=== PATIENT | male | born 1960 | race Caucasian/White ===

== ENCOUNTER 2017-01-13 02:09 | Emergency (ER) | payer OTHER ==
[~2017-01-13] VITALS: Ht 175.3 cm; Wt 90.4 kg
[~2017-01-13 02:09] MED LIST: ACID1TAB14 PO; ASPI-664 PO; CLOP75TA28 PO; COU5 PO; DAPT500V IV; HYDR-3498 PO; LANC1EAC MC; LANT3I SC; LEVO500T10 PO; METO-448 PO; NIFE30TA2 PO; NIFE60TA11 PO; NOVO3I SC; [UNRECOGNIZED DRUG - CODE] MC
[2017-01-13 03:07] VITALS: Ht 175.3 cm; Wt 90.4 kg
[2017-01-13] MEDS ORDERED: SOD CHLORIDE 0.9% 1,000 ML IV STA (03:43)
--- NOTE | 2017-01-13 03:52 | ERD ---
ER Documentation Chief Complaint Date/Time DATE: 01/13/17 TIME: 03:49 Chief Complaint Chest pain and high blood pressure x 1 week. Worse last night HPI Patient is a 56-year-old male who states that his primary care doctor recently changed his blood pressure medications. He states he feels like when he takes his blood pressure medications his blood pressure actually goes up and this causes him to have pain. He has not really sure however how it may be affecting his blood pressure as he does not really check his blood pressure. Patient states that he is taking his simvastatin for his cholesterol and he notes after taking that that he does have these aches and pains everywhere. He also notes that his abdomen has been sore ever since he started taking that as well. He did not discuss his symptoms with his primary care physician. He has not reported any jaundice nausea or vomiting or any other symptoms. In the remainder of the systems are negative. ROS All systems reviewed and are negative except as per history of present illness. Medications Home Meds Active Scripts Lancets (Comfort Lancets) 1 Each Each, 1 EACH MC, #100 Prov:KRIS FISHER MD 09/06/16 Blood-Glucose Meter, Drum-Type (Accu-Chek) 1 Each Kit, 1 EACH MC, #1 Prov:KRIS FISHER MD 09/06/16 Daptomycin (Daptomycin) 500 Mg Vial, 500 MG IV DAILY for 42 Days, VIAL Prov:CHANO RAYMUNDO . 09/06/16 Levofloxacin* (Levofloxacin*) 500 Mg Tablet, 500 MG PO DAILY for 42 Days, TAB Prov:CHANO RAYMUNDO. 09/06/16 Warfarin Sod (Coumadin) 5 Mg Tab, 3 MG PO DAILY@17 for 30 Days, TAB 2 Refills Prov:CHANO RAYMUNDO. 09/06/16 Nifedipine (Nifedical Xl) 60 Mg Tab.er.24, 60 MG PO QHS for 30 Days, TAB 2 Refills Prov:CHANO RAYMUNDO. 09/06/16 Nifedipine (Procardia Xl) 30 Mg Tab.er.24, 30 MG PO QAM for 30 Days, TAB 2 Refills Prov:CHANO RAYMUNDO. 09/06/16 Metoprolol Tartrate* (Lopressor*) 25 Mg Tab, 25 MG PO BID for 30 Days, TAB 2 Refills Prov:CHANO RAYMUNDO. 09/06/16 Lactobacillus Acidoph/Bulgaricus* (Floranex*) 1 Each Tablet, 1 TAB PO TID for 30 Days, TAB 1 Refill Prov:CHANO RAYMUNDO. 09/06/16 Insulin Glargine* (Lantus*) 100 Unit/Ml Soln, 10 UNIT SC QHS for 30 Days, 2 Refills Prov:CHANO RAYMUNDO. 09/06/16 Hydrocodone Bit-Acetaminophen (Hydrocodone Bit-APAP) 5-325MG Tablet, 1 TAB PO Q6H Y for MODERATE PAIN LEVEL 4-6, #30 TAB Prov:CHANO RAYMUNDO. 09/06/16 Insulin Aspart* (Novolog Insulin Pen*) 100 Unit/Ml Soln, 8 UNIT SC WITH MEALS for 30 Days, 2 Refills Prov:CHANO RAYMUNDO. 09/06/16 Clopidogrel Bisulfate (Clopidogrel) 75 Mg Tablet, 75 MG PO DAILY for 30 Days, TAB 2 Refills Prov:CHANO RAYMUNDO. 09/06/16 Aspirin* (Aspirin* EC) 81 Mg Tablet.dr, 81 MG PO DAILY for 30 Days, 2 Refills Prov:CHANO RAYMUNDO. 09/06/16 Allergies Allergies: Coded Allergies: No Known Allergy (Unverified , 08/31/16) PMhx/Soc History of Surgery: Yes (left lower extremity arterial bypass surgery) Anesthesia Reaction: No Hx Neurological Disorder: No Hx Respiratory Disorders: No Hx Cardiac Disorders: Yes Hx Psychiatric Problems: No Hx Miscellaneous Medical Probl: Yes (diabetes, osteomyelitis) Hx Alcohol Use: No Hx Substance Use: No Hx Tobacco Use: No Smoking Status: Never smoker FmHx Family History: coronary disease, diabetes Physical Exam Vitals Vital Signs Date Time Temp Pulse Resp B/P Pulse Ox O2 Delivery O2 Flow Rate FiO2 01/13/17 03:55 98.4 76 15 165/82 100 Room Air 01/13/17 03:12 83 13 160/81 99 Room Air 01/13/17 03:07 96.8 96 18 220/99 100 Physical Exam Const: [] Well-developed well-nourished male sitting on the bed no acute distress Head: Atraumatic normocephalic Eyes: Normal Conjunctiva ENT: Normal External Ears, Nose and Mouth. Neck: Full range of motion..~ No meningismus. Resp: Clear to auscultation bilaterally Cardio: Regular rate and rhythm, no murmurs Abd: Soft, non tender, non distended. Normal bowel sounds Skin: No petechiae or rashes Back: No midline or flank tenderness Ext: No cyanosis, or edema Neur: Awake and alert oriented 3, GCS of 15, seems anxious Psych: Normal Mood and Affect Result Diagram: 01/13/1733901/13/17339 Results 24 hrs Laboratory Tests Test 01/13/17 03:40 Activated Partial Thromboplast Time 28.7Sec Alanine Aminotransferase (ALT/SGPT) 35IU/L Albumin 4.0g/dl Albumin/Globulin Ratio 1.02 Alkaline Phosphatase 101IU/L Anion Gap 18 Aspartate Amino Transf (AST/SGOT) 32IU/L Basophils # 0.010^3/ul Basophils % 0.4% Blood Urea Nitrogen 26mg/dl Calcium Level 9.0mg/dl Carbon Dioxide Level 24mmol/L Chloride Level 105mmol/L Creatine Kinase 310IU/L Creatine Kinase Index 1.1 Creatinine 0.95mg/dl Creatinine Kinase MB (Mass) 3.27ng/ml Direct Bilirubin 0.00mg/dl Eosinophils # 0.210^3/ul Eosinophils % 2.5% Globulin 3.90g/dl Glucose Level 86mg/dl Hematocrit 34.5% Hemoglobin 11.8g/dl INR International Normalized Ratio 1.29 Indirect Bilirubin 0.2mg/dl Lymphocytes # 2.710^3/ul Lymphocytes % 33.8% Mean Corpuscular Hemoglobin 29.9pg Mean Corpuscular Hemoglobin Concent 34.2g/dl Mean Corpuscular Volume 87.3fl Mean Platelet Volume 9.8fl Monocytes # 0.910^3/ul Monocytes % 10.8% Neutrophils # 4.210^3/ul Neutrophils % 52.3% Nucleated Red Blood Cells # 0.010^3/ul Nucleated Red Blood Cells % 0.0/100WBC Platelet Count 12762^3/UL Potassium Level 5.2mmol/L Prothrombin Time 16.2Sec Prothrombin Time Ratio 1.3 Red Blood Count 3.9510^6/ul Red Cell Distribution Width 12.6% Sodium Level 142mmol/L Total Bilirubin 0.2mg/dl Total Protein 7.9g/dl Troponin I < 0.012ng/ml White Blood Count 8.110^3/ul Current Medications Medications (Trade) Dose Ordered Sig/Stacie Route PRN Reason Start Time Stop Time Status Last Admin Dose Admin Sodium Chloride (NS) 1,000 ml @ 1,000 mls/hr Q1H STAT IV 01/13/17 03:43 01/13/17 04:42 DC Procedures/MDM Differential includes but is not limited to rhabdomyolysis secondary to simvastatin usage, liver necrosis secondary simvastatin usage, hypertension, anxiety secondary to recent medication change, atypical chest pain EKG: Rate/Rhythm: Normal Sinus Rhythm at 85 bpm QRS, ST, T-waves: No changes consistent w/ acute ischemia Impression: No evidence of ischemia or arrhythmia Chest x-ray does not reveal any acute cardiopulmonary process CPK is slightly elevated as is the MB but the index is negative. The troponin is also negative. I believe the CPK is elevated secondary to simvastatin usage which is consistent with his muscle aches. He states that his pain is every time after he takes his simvastatin. I will have him stop his simvastatin and follow-up with his primary care physician. I have advised him to check his blood pressure after he takes his blood pressure medications that he can monitor his blood pressure and follow-up with his primary care physician to see if his primary care doctor needs to alter his blood pressure medications. His primary care doctor is going to need to recheck his CPK after stopping the simvastatin. Luckily his LFTs are within normal limits. Departure Diagnosis: Primary Impression: Rhabdomyolysis due to statin therapy Additional Impressions: Myalgia Hypertension Hypertension type: essential hypertension Qualified Code: I10 - Essential hypertension Chest pain Chest pain type: other chest pain Qualified Code: R07.89 - Other chest pain Condition: Good Patient Instructions: Chest Pain, Uncertain Cause, Rhabdomyolysis Additional Instructions: Stop your simvastatin. Monitor your blood pressure before you take your blood pressure medication and then recheck your blood pressure 1 hour after taking the medication. Record these numbers and take this information to her primary care doctor. Her primary care doctor may need to make changes to her blood pressure medication based on these readings. Your primary care doctor needs to recheck your CPK after stopping her simvastatin. Please drink plenty of fluids. Return to the emergency department for any new or worsening symptoms. BLANCA HUMPHREY Jan 13, 2017 03:52
[2017-01-13 04:09] LABS: ADD SCAN DIFF NO
--- NOTE | 2017-01-13 04:19 | RADRPT ---
PROCEDURE: CHEST - 1 VIEW CLINICAL INDICATION: 56-year-old male with chest pain. TECHNIQUE: A single frontal AP view of the chest was performed portably. The images were reviewed on a PACS workstation. COMPARISON: Chest x-ray September 02, 2016. FINDINGS: The cardiomediastinal silhouette is within normal limits without significant interval change. There is no evidence for an infiltrate. There is no evidence for congestive heart failure. There is no e vidence for pneumothorax. The osseous structures are intact. IMPRESSION: No evidence for active cardiopulmonary disease. .Finn Goncalves MD, MD Date Time Electronically viewed and signed by .Finn Goncalves MD, MD on 01/13/2017 04:19 .Paula/
[2017-01-13 04:22] LABS: BASOPHILS % 0.4 % (0.0-2.0); EOSINOPHILS # 0.2 10^3/ul (0.0-0.5); EOSINOPHILS % 2.5 % (0.0-7.0); HEMATOCRIT 34.5 % (42.0-52.0); HEMOGLOBIN 11.8 g/dl (14.0-18.0); LYMPHOCYTES # 2.7 10^3/ul (0.8-2.9); LYMPHOCYTES % 33.8 % (15.0-51.0); MEAN CORPUSCULAR HEMOGLOBIN 29.9 pg (29.0-33.0); MEAN CORPUSCULAR HGB CONC 34.2 g/dl (32.0-37.0); MEAN CORPUSCULAR VOLUME 87.3 fl (82.0-101.0); MEAN PLATELET VOLUME 9.8 fl (7.4-10.4); MONOCYTE # 0.9 10^3/ul (0.3-0.9); MONOCYTES % 10.8 % (0.0-11.0); NEUTROPHIL # 4.2 10^3/ul (1.6-7.5); NEUTROPHILS % 52.3 % (39.0-77.0); PLATELET COUNT 268 10^3/UL (140-415); RED BLOOD COUNT 3.95 10^6/ul (4.70-6.10); RED CELL DISTRIBUTION WIDTH 12.6 % (11.5-14.5); WHITE BLOOD COUNT 8.1 10^3/ul (4.8-10.8)
[2017-01-13 04:23] LABS: CHLORIDE 105 mmol/L (97-110); POTASSIUM 5.2 mmol/L (3.5-5.1); SODIUM 142 mmol/L (135-144)
[2017-01-13 04:25] LABS: ANION GAP 18 (8-16); BILIRUBIN,INDIRECT 0.2 mg/dl (0-1.1); BILIRUBIN,TOTAL 0.2 mg/dl (0.2-1.3); CARBON DIOXIDE 24 mmol/L (21-31); CREATININE 0.95 mg/dl (0.61-1.24)
[2017-01-13 04:26] LABS: ALANINE AMINOTRANSFERASE 35 IU/L (13-69); ALBUMIN/GLOBULIN RATIO 1.02; ALKALINE PHOSPHATASE 101 IU/L (42-121); ASPARTATE AMINO TRANSFERASE 32 IU/L (15-46); BLOOD UREA NITROGEN 26 mg/dl (7-20); CREATINE KINASE 310 IU/L (23-200); GLUCOSE 86 mg/dl (70-220); INR 1.29; PARTIAL THROMBOPLASTIN TIME 28.7 Sec (25.0-35.0); PROTIME 16.2 Sec (12.2-14.2); PT RATIO 1.3; TOTAL PROTEIN 7.9 g/dl (6.1-8.1)
[2017-01-13 04:39] LABS: CK-MB 3.27 ng/ml (0.0-2.4); TROPONIN-I < 0.012 ng/ml (0.00-0.12)
[2017-01-13] MEDS ORDERED: ONDA4TAB8 PO (05:53)
[2017-01-13] MEDS ORDERED: HYDR-906 PO (05:53)
[2017-01-13 06:18] VITALS: BP 157/79; PULSE 82; RESP 17; TEMP 98.5
== END 2017-01-13 06:18 | disposition home or self-care (01) ==
LOC: E/R 02:09
DX: M62.82 Rhabdomyolysis (principal); I10 Essential (primary) hypertension; R07.89 Other chest pain; E11.9 Type 2 diabetes mellitus without complications; Z79.01 Long term (current) use of anticoagulants; Z79.4 Long term (current) use of insulin; Z79.82 Long term (current) use of aspirin
CPT/HCPCS: 36415; 71010; 80053; 82550; 82553; 84484; 85025; 85610; 85730; 93005; J7030; Z7502; Z7610

== ENCOUNTER 2018-05-14 02:03 | Inpatient (IN) | END 2018-05-15 10:35 | disposition home or self-care (01) | DRG 86 ==

== ENCOUNTER 2018-05-20 14:20 | Outpatient (CLI) | END 2018-05-20 15:44 | disposition home or self-care (01) ==

== ENCOUNTER 2018-05-27 15:42 | Outpatient (CLI) | END 2018-05-27 16:09 | disposition home or self-care (01) ==

== ENCOUNTER 2018-07-04 06:17 | Day surgery (SDC) | END 2018-07-04 11:51 | disposition home or self-care (01) ==

== ENCOUNTER 2018-07-08 23:28 | Inpatient (IN) | END 2018-07-09 00:24 | disposition left against medical advice (07) | DRG 540 ==

== ENCOUNTER 2018-07-10 14:31 | Inpatient (IN) | END 2018-07-18 16:00 | disposition home health service (06) | DRG 540 ==

== ENCOUNTER 2019-01-01 11:55 | Inpatient (IN) | payer OTHER ==
[~2019-01-01] VITALS: Ht 175.3 cm; Wt 95.0 kg
[~2019-01-01 11:55] MED LIST changes: -ACID1TAB14 PO; +AMLO-145 PO; -ASPI-664 PO; +ASPI-903 PO; +CLOP75TA27 PO; -CLOP75TA28 PO; -COU5 PO; -DAPT500V IV; -HYDR-3498 PO; +INSU100I12 SQ; +INSU100I33 SC; -LANC1EAC MC; -LANT3I SC; -LEVO500T10 PO; +LEVO500T48 PO; +LISI-471 PO; -NIFE30TA2 PO; -NIFE60TA11 PO; -NOVO3I SC; +SIMV20TA PO; +Vancomycin Iv Per Pharmacy XX; -[UNRECOGNIZED DRUG - CODE] MC
[2019-01-01 13:45] VITALS: BP 152/72; PULSE 79; RESP 18
[2019-01-01] MEDS ORDERED: BISACODYL 10 MG SUPP PR PRN (15:30)
[2019-01-01] MEDS ORDERED: PENDING SANTYL ORDER FOR WOUND CARE XX PRN (15:30)
[2019-01-01] MEDS ORDERED: NACL 0.9% 3 ML SYG IV SCH (15:30)
[2019-01-01] MEDS ORDERED: morphine 2 MG INJ IV PRN (15:30)
[2019-01-01] MEDS ORDERED: ACETAMINOPHEN 325 MG TAB PO PRN (15:30)
[2019-01-01] MEDS ORDERED: DOCUSATE SODIUM 100 MG CAP PO PRN (15:30)
[2019-01-01] MEDS: ASPIRIN 81 MG TAB PO SCH (15:30)
[2019-01-01] MEDS ORDERED: MAGNESIUM HYDROXIDE 30ML CUP PO PRN (15:30)
[2019-01-01] MEDS ORDERED: OXYCODONE/ACETAMINOPHEN (5/325) TAB PO PRN (15:30)
[2019-01-01] MEDS ORDERED: ONDANSETRON 4 MG INJ IV PRN (15:30)
[2019-01-01] MEDS ORDERED: GLUCOSE GEL 15 GRAM TUBE BUCCAL PRN (16:00)
[2019-01-01] MEDS ORDERED: DEXTROSE 50% 50 ML SYRINGE IV PRN ×2 (16:00)
[2019-01-01] MEDS ORDERED: GLUCAGON 1 MG INJ IM PRN (16:00)
[2019-01-01] MEDS ORDERED: GLUCOSE GEL 15 GRAM TUBE PO PRN ×2 (16:00)
[2019-01-01] MEDS: SOD CHLORIDE 0.9% 1,000 ML IV SCH (16:11)
[2019-01-01 16:20] VITALS: Ht 175.3 cm; Wt 95.0 kg
[2019-01-01] MEDS: LISINOPRIL 20 MG TAB PO SCH (16:20)
[2019-01-01] MEDS: CLOPIDOGREL 75 MG TAB PO SCH (16:23)
--- NOTE | 2019-01-01 17:19 | HP ---
Date/Time of Note Date/Time of Note DATE: 01/01/19 TIME: 17:10 Assessment/Plan VTE Prophylaxis SCD contraindicated: low risk/ambulating Pharmacological prophylaxis: NA/contraindicated Pharm contraindication: surgical contra Lines/Catheters [facility] Peripheral IV Assessment/Plan Hospital Course CC -lt foot infection History of present illness 58-year-old left first toe infection. 24 hours. Denies any injury or aggravating or relieving factors. No generalized symptoms of toxicity fever etc. States he has been using the same diabetic boots for a while. Eyes any earnestine pain. Additionally has had a cough for 4 days. Yellow expectoration no hemoptysis. He did have his flu shot. Vitals: 150/70 rate of 90 temperature 99 PMH Diabetes Metabolic syndrome Hypertension Peripheral artery disease status post angiogram with stent? 2016 Past tobacco COPD? PSH None SH Past tobacco retired from construction no alcohol lives with family FH No family history of early coronary disease stroke. Ovarian cancer with mom and brother may have had prostate cancer ROS Neuro: No loss of speech vision or headache Cardia vascular: No chest pain no dyspnea no edema Lungs: No wheezing no fever, ,+cough Abdomen: No pain nausea vomiting diarrhea Genitourinary: No dysuria hematuria or abdominal pain Musculoskeletal: Mild gait dysfunction no rash no itching positive infection Psychiatry: Patient has a stable mood advancing agitation anxiety Heme: No hematochezia hematuria or melena Endocrine: No thyroid dysfunction. Possible dyslipidemia. Ongoing diabetes Constitutional: No fever no weight loss or loss of appetite PE No pallor droop, c bruits, adenopathy or sinus tenderness Regular no mrg Clear Benign No edema; likely diabetic neuropathy. lt first toe w mild edema and erythema minimal warmth of any A/P 1. Left first toe DF I possible abscess; stable consult vascular consider podiatry 2. Type 2 diabetes 3. Metabolic syndrome 4. Chronic peripheral artery disease 5. Cough/ coryza, rule out influenza Result Diagram: 01/01/19 1623 01/01/19 1623 Results 24hrs Laboratory Tests Test 01/01/19 16:23 White Blood Count 9.5 # Red Blood Count 3.95 L Hemoglobin 11.2 L Hematocrit 34.5 L Mean Corpuscular Volume 87.3 Mean Corpuscular Hemoglobin 28.4 L Mean Corpuscular Hemoglobin Concent 32.5 Red Cell Distribution Width 13.3 Platelet Count 241 # Mean Platelet Volume 9.6 Immature Granulocytes % 0.300 Neutrophils % 68.7 Lymphocytes % 18.9 Monocytes % 9.6 Eosinophils % 2.1 Basophils % 0.4 Nucleated Red Blood Cells % 0.0 Immature Granulocytes # 0.030 Neutrophils # 6.6 Lymphocytes # 1.8 Monocytes # 0.9 Eosinophils # 0.2 Basophils # 0.0 Nucleated Red Blood Cells # 0.0 Prothrombin Time 18.3 H Prothrombin Time Ratio 1.4 INR International Normalized Ratio 1.51 Sodium Level 138 Potassium Level 4.9 Chloride Level 101 Carbon Dioxide Level 28 Anion Gap 9 Blood Urea Nitrogen 26 H Creatinine 0.91 Est Glomerular Filtrat Rate mL/min > 60 Glucose Level 228 H Calcium Level 9.0 Total Bilirubin 0.3 Direct Bilirubin 0.00 Indirect Bilirubin 0.3 Aspartate Amino Transf (AST/SGOT) 17 Alanine Aminotransferase (ALT/SGPT) 14 Alkaline Phosphatase 66 Total Protein 7.6 Albumin 3.7 Globulin 3.90 H Albumin/Globulin Ratio 0.94 HPI/ROS Admit Date/Time Admit Date/Time Jan 01, 2019 at 11:59 PMH/Family/Social Past Medical History Medications Current Medications Sodium Chloride 1,000 ml @ 100 mls/hr Q10H IV Last administered on 01/01/19at 16:11; Admin Dose 100 MLS/HR; Start 01/01/19 at 15:19 IV Flush (NS 3 ml) 3 ml PER PROTOCOL IV ; Start 01/01/19 at 15:30 Ondansetron HCl (Zofran Inj) 4 mg Q6H PRN IV NAUSEA/VOMITING; Start 01/01/19 at 15:30 Acetaminophen (Tylenol Tab) 650 mg Q6H PRN PO .PAIN 1-3 OR TEMP; Start 01/01/19 at 15:30 Oxycodone/ Acetaminophen (Percocet (5/ 325)) 1 tab Q6H PRN PO .MOD PAIN 4-6; Start 01/01/19 at 15:30 Morphine Sulfate (morphine) 2 mg Q4H PRN IV .SEVERE PAIN 7-10; Start 01/01/19 at 15:30 Docusate Sodium (Colace) 100 mg Q12H PRN PO .CONSTIPATION; Start 01/01/19 at 15:30 Magnesium Hydroxide (Milk Of Mag) 30 ml DAILY PRN PO .CONSTIPATION; Start 01/01/19 at 15:30 Bisacodyl (Dulcolax Supp) 10 mg DAILY PRN [place] .CONSTIPATION; Start 01/01/19 at 15:30 Diagnostic Test (Pha) (Accu-Chek) 1 ea 02 XX ; Start 01/02/19 at 02:00 Insulin Aspart (Novolog Insulin Pen) NOVOLOG *MODERATE* ALGORITHM WITH MEALS BEDTIME SC ; Start 01/01/19 at 18:00 Aspirin (Aspirin) 81 mg DAILY PO ; Start 01/01/19 at 15:30 Clopidogrel Bisulfate (plaVIX) 75 mg DAILY PO ; Start 01/01/19 at 16:30 Lisinopril (Zestril) 20 mg DAILY PO Last administered on 01/01/19at 16:20; Admin Dose 20 MG; Start 01/01/19 at 15:30 Metoprolol Tartrate (Lopressor) 25 mg BID PO ; Start 01/01/19 at 21:00 Atorvastatin Calcium (Lipitor) 10 mg QHS PO ; Start 01/01/19 at 21:00 [facility] This patient alarcon... PRN PRN XX WOUND CARE; Start 01/01/19 at 15:30 Miscellaneous Information 1 ea NOTE XX ; Start 01/01/19 at 16:00 Glucose (Glutose) 15 gm Q15M PRN PO DECREASED GLUCOSE; Start 01/01/19 at 16:00 Glucose (Glutose) 22.5 gm Q15M PRN PO DECREASED GLUCOSE; Start 01/01/19 at 16:00 Dextrose (D50w Syringe) 25 ml Q15M PRN IV DECREASED GLUCOSE; Start 01/01/19 at 16:00 Dextrose (D50w Syringe) 50 ml Q15M PRN IV DECREASED GLUCOSE; Start 01/01/19 at 16:00 Glucagon (Glucagen) 1 mg Q15M PRN IM DECREASED GLUCOSE; Start 01/01/19 at 16:00 Glucose (Glutose) 15 gm Q15M PRN BUCCAL DECREASED GLUCOSE; Start 01/01/19 at 16:00 Influenza Virus Vaccine Quadrival (Fluzone) 0.5 ml ONCE ONCE IM* ; Start 01/02/19 at 10:00; Stop 01/02/19 at 10:01 Coded Allergies: No Known Allergy (Unverified , 07/08/18) Family History Significant Family History: no pertinent family hx Social History Smoking Status: Never smoker Exam/Review of Systems Vital Signs Vitals Vital Signs Date Temp Pulse Resp B/P (MAP) Pulse Ox O2 O2 Flow FiO2 Time Delivery Rate 01/01/19 99.9 79 18 152/72 99 Room Air 13:45 (98) NAREN WOODS MD Jan 01, 2019 17:19
[2019-01-01] MEDS: INSULIN ASPART [NOVOLOG] 3 ML PEN SC SCH ×2 (17:30→21:05)
[2019-01-01] MEDS ORDERED: VANCOMYCIN IV PER PHARMACY XX SCH (17:30)
[2019-01-01] MEDS ORDERED: PIPER-TAZO 3.375 GM IV (PMX) 100 ML IVPB SCH (18:00)
[2019-01-01] MEDS: PIPER-TAZO 3.375 GM IV (PMX) 100 ML IVPB SCH ×2 (18:13→23:38)
[2019-01-01] MEDS ORDERED: VANCOMYCIN HCL 2 GM in SOD CHLORIDE 0.9% 500 ML IVPB SCH (18:30)
[2019-01-01 19:42] VITALS: BP 140/66; PULSE 83; RESP 18
[2019-01-01] MEDS: ATORVASTATIN 10 MG TAB PO SCH (21:01)
[2019-01-01] MEDS: METOPROLOL 25 MG TAB PO SCH (21:02)
[2019-01-02] MEDS: SOD CHLORIDE 0.9% 1,000 ML IV SCH ×3 (01:19→11:19)
[2019-01-02 01:51] VITALS: BP 145/71; PULSE 75; RESP 18
[2019-01-02] MEDS: ACCU-CHEK XX SCH (02:29)
[2019-01-02] MEDS: PIPER-TAZO 3.375 GM IV (PMX) 100 ML IVPB SCH ×3 (05:49→17:23)
[2019-01-02] MEDS ORDERED: VANCOMYCIN HCL 1.5 GM in SOD CHLORIDE 0.9% 250 ML IVPB SCH (08:00)
[2019-01-02] MEDS: INSULIN ASPART [NOVOLOG] 3 ML PEN SC SCH ×4 (08:09→20:27)
[2019-01-02 08:20] VITALS: BP 177/83; PULSE 78; RESP 18
[2019-01-02] MEDS: LISINOPRIL 20 MG TAB PO SCH (08:23)
[2019-01-02] MEDS: ASPIRIN 81 MG TAB PO SCH (08:23)
[2019-01-02] MEDS: METOPROLOL 25 MG TAB PO SCH ×2 (08:23→20:26)
[2019-01-02] MEDS: CLOPIDOGREL 75 MG TAB PO SCH (08:23)
[2019-01-02 13:55] VITALS: BP 174/84; PULSE 72; RESP 19
--- NOTE | 2019-01-02 13:55 | PN ---
Date/Time of Note Date/Time of Note DATE: 01/02/19 TIME: 13:53 Assessment/Plan VTE Prophylaxis Risk score (from Ns)>0 risk: 1 SCD applied (from Ns): Yes SCD contraindicated: low risk/ambulating Pharmacological prophylaxis: LMWH Lines/Catheters IV Catheter Type (from Nrs): Saline Lock Assessment/Plan Hospital Course A/P 1. Left first toe DFI, possible abscess; stable consulted vascular & ID; consider podiatry 2. Type 2 diabetes 3. Metabolic syndrome 4. Chronic PAD 5. Cough/ coryza, ruled out influenza 6. Diabetes 7. Past tobacco 8. COPD? PE No pallor Regular no mrg Clear Benign No edema; likely diabetic neuropathy. lt first toe w mild edema and erythema minimal warmth of any Result Diagram: 01/02/19 0510 01/02/19 0510 Results 24hrs Laboratory Tests Test 01/01/19 16:23 01/01/19 17:28 01/01/19 21:00 01/02/19 02:25 White Blood Count 9.5 # Red Blood Count 3.95 L Hemoglobin 11.2 L Hematocrit 34.5 L Mean Corpuscular 87.3 Volume Mean Corpuscular 28.4 L Hemoglobin Mean Corpuscular 32.5 Hemoglobin Concent Red Cell 13.3 Distribution Width Platelet Count 241 # Mean Platelet Volume 9.6 Immature 0.300 Granulocytes % Neutrophils % 68.7 Lymphocytes % 18.9 Monocytes % 9.6 Eosinophils % 2.1 Basophils % 0.4 Nucleated Red Blood 0.0 Cells % Immature 0.030 Granulocytes # Neutrophils # 6.6 Lymphocytes # 1.8 Monocytes # 0.9 Eosinophils # 0.2 Basophils # 0.0 Nucleated Red Blood 0.0 Cells # Prothrombin Time 18.3 H Prothrombin Time 1.4 Ratio INR International 1.51 Normalized Ratio Sodium Level 138 Potassium Level 4.9 Chloride Level 101 Carbon Dioxide Level 28 Anion Gap 9 Blood Urea Nitrogen 26 H Creatinine 0.91 Est Glomerular > 60 Filtrat Rate mL/min Glucose Level 228 H Calcium Level 9.0 Total Bilirubin 0.3 Direct Bilirubin 0.00 Indirect Bilirubin 0.3 Aspartate Amino 17 Transf (AST/SGOT) Alanine 14 Aminotransferase (AL T/SGPT) Alkaline Phosphatase 66 Total Protein 7.6 Albumin 3.7 Globulin 3.90 H Albumin/Globulin 0.94 Ratio Bedside Glucose 213 190 155 Test 01/02/19 05:10 01/02/19 08:05 01/02/19 13:09 White Blood Count 9.1 Red Blood Count 3.84 L Hemoglobin 11.0 L Hematocrit 33.9 L Mean Corpuscular 88.3 Volume Mean Corpuscular 28.6 L Hemoglobin Mean Corpuscular 32.4 Hemoglobin Concent Red Cell 13.2 Distribution Width Platelet Count 235 Mean Platelet Volume 10.2 Immature 0.400 Granulocytes % Neutrophils % 69.7 Lymphocytes % 17.5 Monocytes % 8.9 Eosinophils % 3.1 Basophils % 0.4 Nucleated Red Blood 0.0 Cells % Immature 0.040 H Granulocytes # Neutrophils # 6.3 Lymphocytes # 1.6 Monocytes # 0.8 Eosinophils # 0.3 Basophils # 0.0 Nucleated Red Blood 0.0 Cells # Sodium Level 139 Potassium Level 4.8 Chloride Level 103 Carbon Dioxide Level 29 Anion Gap 7 Blood Urea Nitrogen 19 Creatinine 0.92 Est Glomerular > 60 Filtrat Rate mL/min Glucose Level 164 Hemoglobin A1c 7.9 H Calcium Level 8.8 Phosphorus Level 3.3 Magnesium Level 2.0 Total Bilirubin 0.4 Direct Bilirubin 0.00 Indirect Bilirubin 0.4 Aspartate Amino 19 Transf (AST/SGOT) Alanine 20 Aminotransferase (AL T/SGPT) Alkaline Phosphatase 66 Total Protein 7.0 Albumin 3.3 Globulin 3.70 H Albumin/Globulin 0.89 Ratio Thyroid Stimulating 0.347 L Hormone (TSH) Bedside Glucose 148 190 Exam/Review of Systems Exam Vitals Vital Signs Date Temp Pulse Resp B/P (MAP) Pulse Ox O2 O2 Flow FiO2 Time Delivery Rate 01/02/19 99.0 78 18 177/83 99 08:20 (114) 01/01/19 Room Air 13:45 Intake and Output 01/01/19 01/01/19 01/02/19 1515:00 23:00 07:00 IntakeIntake Total 1170 ml 1810 ml BalanceBalance 1170 ml 1810 ml Results Results 24hrs Laboratory Tests Test 01/01/19 16:23 01/01/19 17:28 01/01/19 21:00 01/02/19 02:25 White Blood Count 9.5 # Red Blood Count 3.95 L Hemoglobin 11.2 L Hematocrit 34.5 L Mean Corpuscular 87.3 Volume Mean Corpuscular 28.4 L Hemoglobin Mean Corpuscular 32.5 Hemoglobin Concent Red Cell 13.3 Distribution Width Platelet Count 241 # Mean Platelet Volume 9.6 Immature 0.300 Granulocytes % Neutrophils % 68.7 Lymphocytes % 18.9 Monocytes % 9.6 Eosinophils % 2.1 Basophils % 0.4 Nucleated Red Blood 0.0 Cells % Immature 0.030 Granulocytes # Neutrophils # 6.6 Lymphocytes # 1.8 Monocytes # 0.9 Eosinophils # 0.2 Basophils # 0.0 Nucleated Red Blood 0.0 Cells # Prothrombin Time 18.3 H Prothrombin Time 1.4 Ratio INR International 1.51 Normalized Ratio Sodium Level 138 Potassium Level 4.9 Chloride Level 101 Carbon Dioxide Level 28 Anion Gap 9 Blood Urea Nitrogen 26 H Creatinine 0.91 Est Glomerular > 60 Filtrat Rate mL/min Glucose Level 228 H Calcium Level 9.0 Total Bilirubin 0.3 Direct Bilirubin 0.00 Indirect Bilirubin 0.3 Aspartate Amino 17 Transf (AST/SGOT) Alanine 14 Aminotransferase (AL T/SGPT) Alkaline Phosphatase 66 Total Protein 7.6 Albumin 3.7 Globulin 3.90 H Albumin/Globulin 0.94 Ratio Bedside Glucose 213 190 155 Test 01/02/19 05:10 01/02/19 08:05 01/02/19 13:09 White Blood Count 9.1 Red Blood Count 3.84 L Hemoglobin 11.0 L Hematocrit 33.9 L Mean Corpuscular 88.3 Volume Mean Corpuscular 28.6 L Hemoglobin Mean Corpuscular 32.4 Hemoglobin Concent Red Cell 13.2 Distribution Width Platelet Count 235 Mean Platelet Volume 10.2 Immature 0.400 Granulocytes % Neutrophils % 69.7 Lymphocytes % 17.5 Monocytes % 8.9 Eosinophils % 3.1 Basophils % 0.4 Nucleated Red Blood 0.0 Cells % Immature 0.040 H Granulocytes # Neutrophils # 6.3 Lymphocytes # 1.6 Monocytes # 0.8 Eosinophils # 0.3 Basophils # 0.0 Nucleated Red Blood 0.0 Cells # Sodium Level 139 Potassium Level 4.8 Chloride Level 103 Carbon Dioxide Level 29 Anion Gap 7 Blood Urea Nitrogen 19 Creatinine 0.92 Est Glomerular > 60 Filtrat Rate mL/min Glucose Level 164 Hemoglobin A1c 7.9 H Calcium Level 8.8 Phosphorus Level 3.3 Magnesium Level 2.0 Total Bilirubin 0.4 Direct Bilirubin 0.00 Indirect Bilirubin 0.4 Aspartate Amino 19 Transf (AST/SGOT) Alanine 20 Aminotransferase (AL T/SGPT) Alkaline Phosphatase 66 Total Protein 7.0 Albumin 3.3 Globulin 3.70 H Albumin/Globulin 0.89 Ratio Thyroid Stimulating 0.347 L Hormone (TSH) Bedside Glucose 148 190 Medications Medication Current Medications Sodium Chloride 1,000 ml @ 100 mls/hr Q10H IV Last administered on 01/02/19at 05:49; Admin Dose 100 MLS/HR; Start 01/01/19 at 15:19 IV Flush (NS 3 ml) 3 ml PER PROTOCOL IV ; Start 01/01/19 at 15:30 Ondansetron HCl (Zofran Inj) 4 mg Q6H PRN IV NAUSEA/VOMITING; Start 01/01/19 at 15:30 Acetaminophen (Tylenol Tab) 650 mg Q6H PRN PO .PAIN 1-3 OR TEMP; Start 01/01/19 at 15:30 Oxycodone/ Acetaminophen (Percocet (5/ 325)) 1 tab Q6H PRN PO .MOD PAIN 4-6; Start 01/01/19 at 15:30 Morphine Sulfate (morphine) 2 mg Q4H PRN IV .SEVERE PAIN 7-10; Start 01/01/19 at 15:30 Docusate Sodium (Colace) 100 mg Q12H PRN PO .CONSTIPATION; Start 01/01/19 at 15:30 Magnesium Hydroxide (Milk Of Mag) 30 ml DAILY PRN PO .CONSTIPATION; Start 01/01/19 at 15:30 Bisacodyl (Dulcolax Supp) 10 mg DAILY PRN OR .CONSTIPATION; Start 01/01/19 at 15:30 Diagnostic Test (Pha) (Accu-Chek) 1 ea 02 XX Last administered on 01/02/19at 02:29; Admin Dose 1 EA; Start 01/02/19 at 02:00 Insulin Aspart (Novolog Insulin Pen) NOVOLOG *MODERATE* ALGORITHM WITH MEALS BEDTIME SC Last administered on 01/02/19at 13:12; Admin Dose 4 UNIT; Start 01/01/19 at 18:00 Aspirin (Aspirin) 81 mg DAILY PO Last administered on 01/02/19at 08:23; Admin Dose 81 MG; Start 01/01/19 at 15:30 Clopidogrel Bisulfate (plaVIX) 75 mg DAILY PO Last administered on 01/02/19at 08:23; Admin Dose 75 MG; Start 01/01/19 at 16:30 Lisinopril (Zestril) 20 mg DAILY PO Last administered on 01/02/19at 08:23; Admin Dose 20 MG; Start 01/01/19 at 15:30 Metoprolol Tartrate (Lopressor) 25 mg BID PO Last administered on 01/02/19at 08:23; Admin Dose 25 MG; Start 01/01/19 at 21:00 Atorvastatin Calcium (Lipitor) 10 mg QHS PO Last administered on 01/01/19at 21:01; Admin Dose 10 MG; Start 01/01/19 at 21:00 [facility] This patient alarcon... PRN PRN XX WOUND CARE; Start 01/01/19 at 15:30 Miscellaneous Information 1 ea NOTE XX ; Start 01/01/19 at 16:00 Glucose (Glutose) 15 gm Q15M PRN PO DECREASED GLUCOSE; Start 01/01/19 at 16:00 Glucose (Glutose) 22.5 gm Q15M PRN PO DECREASED GLUCOSE; Start 01/01/19 at 16:00 Dextrose (D50w Syringe) 25 ml Q15M PRN IV DECREASED GLUCOSE; Start 01/01/19 at 16:00 Dextrose (D50w Syringe) 50 ml Q15M PRN IV DECREASED GLUCOSE; Start 01/01/19 at 16:00 Glucagon (Glucagen) 1 mg Q15M PRN IM DECREASED GLUCOSE; Start 01/01/19 at 16:00 Glucose (Glutose) 15 gm Q15M PRN BUCCAL DECREASED GLUCOSE; Start 01/01/19 at 16:00 Vancomycin HCl (Vanco Iv Per Pharmacy) VANCOMYCIN PER PHARMACY PER PROTOCOL XX ; Start 01/01/19 at 17:30 Clonidine (Catapres) 0.1 mg Q4H PRN PO ELEVATED SYSTOLIC BP; Start 01/01/19 at 18:30 Piperacillin Sod/ Tazobactam Sod 100 ml @ 200 mls/hr Q6 IVPB Last administered on 01/02/19at 13:14; Admin Dose 200 MLS/HR; Start 01/02/19 at 12:00 Vancomycin HCl 250 ml @ 125 mls/hr Q12H IVPB ; Start 01/02/19 at 21:00 NAREN WOODS MD Jan 02, 2019 13:55
--- NOTE | 2019-01-02 14:08 | CONS ---
DATE OF ADMISSION: 01/01/2019 DATE OF CONSULTATION: 01/02/2019 TYPE OF CONSULTATION: Infectious disease. REASON FOR CONSULTATION: Antibiotic management. HISTORY OF PRESENT ILLNESS: Rigoberto Todd is a 58-year-old male who comes in with left 1st toe infection. His past problems include: 1. Adult-onset diabetes mellitus. 2. Metabolic syndrome. 3. Hypertension. 4. Peripheral artery disease, status post angiogram with stent in 2016. 5. COPD. 6. History of tobacco smoking in the past. The patient denies any injury or aggravating factor. He has been using the same diabetic boots for a period of time. In addition, he has had a cough for the last 4 days with yellow sputum. PAST MEDICAL HISTORY: Operations as outlined. FAMILY HISTORY: Positive for ovarian cancer. Brother may have had prostate cancer. No family histo ry of early coronary artery disease. REVIEW OF SYSTEMS: Noncontributory. PHYSICAL EXAMINATION: GENERAL: The patient is a well-developed, well-nourished male who is awake, responsive, in no acute distress. VITAL SIGNS: Stable. He is afebrile. SKIN: Without generalized rash. He has some pallor. HEENT: Within normal limits. NECK: Supple. LYMPH NODES: None palpable. CHEST: Decreased breath sounds at the bases. HEART: Without murmur or gallop. ABDOMEN: Soft, nontender without organosplenomegaly or masses. EXTREMITIES: Left 1st toe with mild edema and erythema, minimal warmth. RECTAL AND GENITAL: Deferred. NEUROLOGICAL: No focal neurological abnormality. ANCILLARY LABORATORY DATA: White count 9.5, H and H of 11.2 and 34.5, platelet count 241,000. BUN a nd creatinine is 26/0.91, glucose of 228. IMPRESSION AND PLAN: The patient comes in with cellulitis of left 1st toe. He also has a cough whic h has to be looked into. His T-max was 99.9. His influenza swabs were negative. His chest x-ray sh owed no acute disease. The patient was started on vancomycin and Zosyn. I would recommend podiatric evaluation. Continue antibiotic therapy for now. I will dictate my findings to the hospitalist, to Dr. Woods. Dictated By: JENS MENDOSA MD, JD/MT Conf#: [id number] [facility]#: [id number] CC: SHEFALI KRISHNAN MD; NAREN WOODS MD;*[facility]*
--- NOTE | 2019-01-02 19:47 | CONS ---
Assessment/Plan Assessment/Plan Assessment/Plan (Daily) Date: 01/02/2019 Vascular surgery Note Dear Doctors: Mr. 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 It was identified at that time the patient's vein was moderate. Also, the patient has had some history of hypercoagulable state in which he was kept on aspirin, Plavix and Eliquis in order to help keep his patency of his graft. 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 He was given warning to avoid wearing heavy steel toe shoes. However, the patient seemed to have not followed those recommendations, did not get his diabetic fitted shoes and subsequently developed a second toe infection with area of gangrene at the tip. He was treated with IV antibiotics at that time and was able to resolve the issue. He has now presented with a new blood blister to have developed over his left first toe over the past 2 days here today for evaluation The patient subsequently was recommended to be admitted to the hospital and be started on IV antibiotics. At the moment, the patient denies shortness of breath, chest pain, nausea, vomiting, fever or chills. REVIEW OF SYSTEMS: A 14-point review performed and negative except what is mentioned in the HPI. 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 PAST SURGICAL HISTORY: Localized debridement of the left first toe. Left femoral to below knee popliteal artery in situ bypass in 2016. FAMILY HISTORY: Positive for diabetes, hypertension. SOCIAL HISTORY: Denies current tobacco, alcohol or illicit drug use. PHYSICAL EXAMINATION: GENERAL: Alert and oriented x3, no apparent distress. HEENT: Normocephalic, atraumatic. Mucosa moist. NECK: Supple, no carotid bruit. PULMONARY: Clear to auscultation bilaterally. No crackles. CARDIOVASCULAR: S1, S2 present. No murmurs. ABDOMEN: Soft, nontender, nondistended. Bowel sounds positive. LOWER EXTREMITIES: -Right lower extremity palpable femoral pulse, nonpalpable pedal pulse. Motor and sensory intact. Capillary refill 3 seconds. -Left lower extremity palpable femoral pulse, nonpalpable pedal pulse. Motor and sensory intact. Capillary refill 3 seconds, palpable graft at the knee. First toe with what appears to be a blister and purulent drainage, erythema extending to the metatarsal , second toe is well-healed ASSESSMENT AND PLAN: -Bilateral lower extremity atherosclerosis with left lower extremity first toe ulcer and diabetic foot infection: It seems that the patient's left lower extremity diabetic foot infection and first toe ulceration that will require to be admitted for IV antibiotics -The patient should be on IV antibiotics and recommend for home health with a PICC line. The few issues for him is that the patient unfortunately has severe infrapopliteal disease that was not amenable for a further distal bypass meeting closer to the foot. As the patient has limited conduit, at the moment would recommend for the patient to be compliant with his vascular optimization (BP meds, diet, nutrition, exercise, sugar control, antiplatelets) and his diabetic foot care, which is of importance. -A thorough foot care education for diabetic feet was performed in front of the patient and his family at the bedside and the importance of not wearing steel toe shoes as they continue to apply extensive pressure on his feet. Recommended for the patient to continue with diabetic fitted shoes. -Would recommend for physical therapy to evaluate the patient and provide him postoperative surgical shoes and he can do full weightbearing with heel touch only. -Apply Betadine paint to the second toe for now. -I have also informed our frame builder, Dr. Dickerson, who has followed the patient in the past as well. -We will plan to evaluate his new arterial duplex to evaluate his lower extremity bypass. Unfortunately, as this is the last resort for him, I am hoping that we were able to keep this bypass patent as long as possible. -When the patient will be planned for PICC line placement, he should be transitioned from Eliquis to Lovenox and not to hold Eliquis by itself only. Please call vascular for recommendations of the transition if any questions. -Discussed findings, plan and management with the patient and the family at the bedside, they understood all that is involved and have agreed to proceed with what has been recommended for now. -Thank you for allowing us to partake in the care of your patient. Please call with any questions. Consultation Date/Type/Reason Admit Date/Time Jan 01, 2019 at 11:59 Date/Time of Note DATE: 01/02/19 TIME: 19:46 Past Medical History Home Meds Active Scripts Amlodipine Besylate* (Amlodipine Besylate*) 5 Mg Tablet, 10 MG PO DAILY for 30 Days, TAB Prov:ARTEM LYN MD 07/18/18 [Vancomycin Iv Per Pharmacy] 1 EA EACH No Conflict Check, 0 EA XX .PER PROTOCOL for 42 Days, #42 Prov:LEON BEST 07/16/18 Insulin Lispro (Humalog Kwikpen U-100) 100 Unit/1 Ml Insuln.pen, 6 UNIT SQ AC MEALS, #3 EA Prov:REGIDOLEON Sifuentes 07/16/18 Insulin Glargine,Hum.rec.anlog (Basaglar Kwikpen U-100) 100 Unit/1 Ml Insuln.pen, 14 UNIT SC QHS, #3 EA Prov:LEON BEST 07/16/18 Levofloxacin* (Levaquin*) 500 Mg Tablet, 500 MG PO DAILY@06, #44 TAB Prov:[address] 07/16/18 Reported Medications Metoprolol Tartrate* (Lopressor*) 25 Mg Tab, 25 MG PO BID, #60 TAB 07/08/18 Aspirin* (Aspirin* Chew) 81 Mg Tab.chew, 81 MG PO DAILY, TAB.CHEW 07/08/18 Lisinopril* (Lisinopril*) 20 Mg Tablet, 20 MG PO DAILY, #30 TAB 07/08/18 Clopidogrel Bisulfate (Clopidogrel) 75 Mg Tablet, 75 MG PO DAILY, #30 TAB 07/08/18 Simvastatin* (Zocor*) 20 Mg Tablet, 20 MG PO QHS, #30 TAB 07/08/18 Medications Current Medications Sodium Chloride 1,000 ml @ 50 mls/hr Q20H IV Last administered on 01/02/19at 05:49; Admin Dose 100 MLS/HR; Start 01/01/19 at 15:19 IV Flush (NS 3 ml) 3 ml PER PROTOCOL IV ; Start 01/01/19 at 15:30 Ondansetron HCl (Zofran Inj) 4 mg Q6H PRN IV NAUSEA/VOMITING; Start 01/01/19 at 15:30 Acetaminophen (Tylenol Tab) 650 mg Q6H PRN PO .PAIN 1-3 OR TEMP; Start 01/01/19 at 15:30 Oxycodone/ Acetaminophen (Percocet (5/ 325)) 1 tab Q6H PRN PO .MOD PAIN 4-6; Start 01/01/19 at 15:30 Morphine Sulfate (morphine) 2 mg Q4H PRN IV .SEVERE PAIN 7-10; Start 01/01/19 at 15:30 Docusate Sodium (Colace) 100 mg Q12H PRN PO .CONSTIPATION; Start 01/01/19 at 15:30 Magnesium Hydroxide (Milk Of Mag) 30 ml DAILY PRN PO .CONSTIPATION; Start at 15:30 Bisacodyl (Dulcolax Supp) 10 mg DAILY PRN IN .CONSTIPATION; Start 01/01/19 at 15:30 Diagnostic Test (Pha) (Accu-Chek) 1 ea 02 XX Last administered on 01/02/19at 02:29; Admin Dose 1 EA; Start 01/02/19 at 02:00 Insulin Aspart (Novolog Insulin Pen) NOVOLOG *MODERATE* ALGORITHM WITH MEALS BEDTIME SC Last administered on 01/02/19 17:22; Admin Dose 4 UNIT; Start 01/01/19 at 18:00 Aspirin (Aspirin) 81 mg DAILY PO Last administered on 01/02/19 08:23; Admin Dose 81 MG; Start 01/01/19 at 15:30 Clopidogrel Bisulfate (plaVIX) 75 mg DAILY PO Last administered on 01/02/19 08:23; Admin Dose 75 MG; Start 01/01/19 at 16:30 Lisinopril (Zestril) 20 mg DAILY PO Last administered on 01/02/19 08:23; Admin Dose 20 MG; Start 01/01/19 at 15:30 Metoprolol Tartrate (Lopressor) 25 mg BID PO Last administered on 01/02/19 08:23; Admin Dose 25 MG; Start 01/01/19 at 21:00 Atorvastatin Calcium (Lipitor) 10 mg QHS PO Last administered on 01/01/19at 21:01; Admin Dose 10 MG; Start 01/01/19 at 21:00 Miscellaneous Information (Pending Santyl Order For Wound Care) This patient alarcon... PRN PRN XX WOUND CARE; Start 01/01/19 at 15:30 Miscellaneous Information 1 ea NOTE XX ; Start 01/01/19 at 16:00 Glucose (Glutose) 15 gm Q15M PRN PO DECREASED GLUCOSE; Start 01/01/19 at 16:00 Glucose (Glutose) 22.5 gm Q15M PRN PO DECREASED GLUCOSE; Start 01/01/19 at 16:00 Dextrose (D50w Syringe) 25 ml Q15M PRN IV DECREASED GLUCOSE; Start 01/01/19 at 16:00 Dextrose (D50w Syringe) 50 ml Q15M PRN IV DECREASED GLUCOSE; Start 01/01/19 at 16:00 Glucagon (Glucagen) 1 mg Q15M PRN IM DECREASED GLUCOSE; Start 01/01/19 at 16:00 Glucose (Glutose) 15 gm Q15M PRN BUCCAL DECREASED GLUCOSE; Start 01/01/19 at 16:00 Vancomycin HCl (Vanco Iv Per Pharmacy) VANCOMYCIN PER PHARMACY PER PROTOCOL XX ; Start 01/01/19 at 17:30 Clonidine (Catapres) 0.1 mg Q4H PRN PO ELEVATED SYSTOLIC BP; Start 01/01/19 at 18:30 Piperacillin Sod/ Tazobactam Sod 100 ml @ 200 mls/hr Q6 IVPB Last administered on 01/02/19at 17:23; Admin Dose 200 MLS/HR; Start 01/02/19 at 12:00 Vancomycin HCl 250 ml @ 125 mls/hr Q12H IVPB ; Start 01/02/19 at 21:00 Allergies: Coded Allergies: No Known Allergy (Unverified , 07/08/18) Social History Smoking Status: Never smoker Exam/Review of Systems Exam Vitals Vital Signs Date Temp Pulse Resp B/P (MAP) Pulse Ox O2 O2 Flow FiO2 Time Delivery Rate 01/02/19 98.2 72 19 174/84 98 13:55 (114) 01/01/19 Room Air 13:45 Intake and Output 01/01/19 01/01/19 01/02/19 1515:00 23:00 07:00 IntakeIntake Total 1170 ml 1810 ml BalanceBalance 1170 ml 1810 ml Results Result Diagram: 01/02/19 0510 01/02/19 0510 Results 24hrs Laboratory Tests Test 01/01/19 21:00 01/02/19 02:25 01/02/19 05:10 01/02/19 08:05 Bedside Glucose 190 155 148 White Blood Count 9.1 Red Blood Count 3.84 L Hemoglobin 11.0 L Hematocrit 33.9 L Mean Corpuscular 88.3 Volume Mean Corpuscular 28.6 L Hemoglobin Mean Corpuscular 32.4 Hemoglobin Concent Red Cell 13.2 Distribution Width Platelet Count 235 Mean Platelet Volume 10.2 Immature 0.400 Granulocytes % Neutrophils % 69.7 Lymphocytes % 17.5 Monocytes % 8.9 Eosinophils % 3.1 Basophils % 0.4 Nucleated Red Blood 0.0 Cells % Immature 0.040 H Granulocytes # Neutrophils # 6.3 Lymphocytes # 1.6 Monocytes # 0.8 Eosinophils # 0.3 Basophils # 0.0 Nucleated Red Blood 0.0 Cells # Sodium Level 139 Potassium Level 4.8 Chloride Level 103 Carbon Dioxide Level 29 Anion Gap 7 Blood Urea Nitrogen 19 Creatinine 0.92 Est Glomerular > 60 Filtrat Rate mL/min Glucose Level 164 Hemoglobin A1c 7.9 H Calcium Level 8.8 Phosphorus Level 3.3 Magnesium Level 2.0 Total Bilirubin 0.4 Direct Bilirubin 0.00 Indirect Bilirubin 0.4 Aspartate Amino 19 Transf (AST/SGOT) Alanine 20 Aminotransferase (AL T/SGPT) Alkaline Phosphatase 66 Total Protein 7.0 Albumin 3.3 Globulin 3.70 H Albumin/Globulin 0.89 Ratio Thyroid Stimulating 0.347 L Hormone (TSH) Test 01/02/19 13:09 01/02/19 17:20 Bedside Glucose 190 197 Medications Medication Current Medications Sodium Chloride 1,000 ml @ 50 mls/hr Q20H IV Last administered on 01/02/19at 05:49; Admin Dose 100 MLS/HR; Start 01/01/19 at 15:19 IV Flush (NS 3 ml) 3 ml PER PROTOCOL IV ; Start 01/01/19 at 15:30 Ondansetron HCl (Zofran Inj) 4 mg Q6H PRN IV NAUSEA/VOMITING; Start 01/01/19 at 15:30 Acetaminophen (Tylenol Tab) 650 mg Q6H PRN PO .PAIN 1-3 OR TEMP; Start 01/01/19 at 15:30 Oxycodone/ Acetaminophen (Percocet (5/ 325)) 1 tab Q6H PRN PO .MOD PAIN 4-6; Start 01/01/19 at 15:30 Morphine Sulfate (morphine) 2 mg Q4H PRN IV .SEVERE PAIN 7-10; Start 01/01/19 at 15:30 Docusate Sodium (Colace) 100 mg Q12H PRN PO .CONSTIPATION; Start 01/01/19 at 15:30 Magnesium Hydroxide (Milk Of Mag) 30 ml DAILY PRN PO .CONSTIPATION; Start 01/01/19 at 15:30 Bisacodyl (Dulcolax Supp) 10 mg DAILY PRN IN .CONSTIPATION; Start 01/01/19 at 15:30 Diagnostic Test (Pha) (Accu-Chek) 1 ea 02 XX Last administered on 01/02/19at 0 2:29; Admin Dose 1 EA; Start 01/02/19 at 02:00 Insulin Aspart (Novolog Insulin Pen) NOVOLOG *MODERATE* ALGORITHM WITH MEALS BEDTIME SC Last administered on 01/02/19at 17:22; Admin Dose 4 UNIT; Start 01/01/19 at 18:00 Aspirin (Aspirin) 81 mg DAILY PO Last administered on 01/02/19at 08:23; Admin Dose 81 MG; Start 01/01/19 at 15:30 Clopidogrel Bisulfate (plaVIX) 75 mg DAILY PO Last administered on 01/02/19 08:23; Admin Dose 75 MG; Start 01/01/19 at 16:30 Lisinopril (Zestril) 20 mg DAILY PO Last administered on 01/02/19at 08:23; Admin Dose 20 MG; Start 01/01/19 at 15:30 Metoprolol Tartrate (Lopressor) 25 mg BID PO Last administered on 01/02/19at 08:23; Admin Dose 25 MG; Start 01/01/19 at 21:00 Atorvastatin Calcium (Lipitor) 10 mg QHS PO Last administered on 01/01/19at 21:01; Admin Dose 10 MG; Start 01/01/19 at 21:00 [facility]isc[facility] Information [facility] This patient alarcon... PRN PRN XX WOUND CARE; Start 01/01/19 at 15:30 Miscellaneous Information 1 ea NOTE XX ; Start 01/01/19 at 16:00 Glucose (Glutose) 15 gm Q15M PRN PO DECREASED GLUCOSE; Start 01/01/19 at 16:00 Glucose (Glutose) 22.5 gm Q15M PRN PO DECREASED GLUCOSE; Start 01/01/19 at 16:00 Dextrose (D50w Syringe) 25 ml Q15M PRN IV DECREASED GLUCOSE; Start 01/01/19 at 16:00 Dextrose (D50w Syringe) 50 ml Q15M PRN IV DECREASED GLUCOSE; Start 01/01/19 at 16:00 Glucagon (Glucagen) 1 mg Q15M PRN IM DECREASED GLUCOSE; Start 01/01/19 at 16:00 Glucose (Glutose) 15 gm Q15M PRN BUCCAL DECREASED GLUCOSE; Start 01/01/19 at 16:00 Vancomycin HCl (Vanco Iv Per Pharmacy) VANCOMYCIN PER PHARMACY PER PROTOCOL XX ; Start 01/01/19 at 17:30 Clonidine (Catapres) 0.1 mg Q4H PRN PO ELEVATED SYSTOLIC BP; Start 01/01/19 at 18:30 Piperacillin Sod/ Tazobactam Sod 100 ml @ 200 mls/hr Q6 IVPB Last administered on 01/02/19at 17:23; Admin Dose 200 MLS/HR; Start 01/02/19 at 12:00 Vancomycin HCl 250 ml @ 125 mls/hr Q12H IVPB ; Start 01/02/19 at 21:00 YAMILET CAICEDO MD Jan 02, 2019 19:47
[2019-01-02 19:55] VITALS: BP 174/79; PULSE 75; RESP 18
[2019-01-02] MEDS: ATORVASTATIN 10 MG TAB PO SCH (20:25)
[2019-01-02] MEDS: GUAIFENESIN/DM 5ML CUP PO PRN (20:25)
[2019-01-02] MEDS: VANCOMYCIN 1 GM 250 ML IVPB SCH (20:26)
[2019-01-02 21:18] VITALS: BP 171/84; PULSE 76; RESP 18
[2019-01-02 22:29] VITALS: BP 160/79; PULSE 63
[2019-01-03] MEDS: PIPER-TAZO 3.375 GM IV (PMX) 100 ML IVPB SCH ×5 (00:14→23:36)
[2019-01-03 01:42] VITALS: BP 131/88; PULSE 91; RESP 18
[2019-01-03] MEDS: ACCU-CHEK XX SCH (02:00)
[2019-01-03] MEDS: SOD CHLORIDE 0.9% 1,000 ML IV SCH ×2 (04:41→12:14)
[2019-01-03] MEDS: GUAIFENESIN/DM 5ML CUP PO PRN ×2 (05:43→19:12)
[2019-01-03 07:43] VITALS: BP 158/75; PULSE 68; RESP 18
[2019-01-03] MEDS: INSULIN ASPART [NOVOLOG] 3 ML PEN SC SCH ×4 (08:02→21:05)
[2019-01-03] MEDS: VANCOMYCIN 1 GM 250 ML IVPB SCH ×2 (08:45→20:52)
[2019-01-03] MEDS: CLOPIDOGREL 75 MG TAB PO SCH (08:45)
[2019-01-03] MEDS: ASPIRIN 81 MG TAB PO SCH (08:45)
[2019-01-03] MEDS: LISINOPRIL 20 MG TAB PO SCH (08:46)
[2019-01-03] MEDS: METOPROLOL 25 MG TAB PO SCH ×2 (08:46→20:51)
[2019-01-03 13:40] VITALS: BP 159/75; PULSE 67; RESP 18
--- NOTE | 2019-01-03 18:07 | CONS ---
Assessment/Plan Assessment/Plan Hospital Course (Demo Recall) ID PROGRESS NOTE CURRENT ABX: DAY # 2 => Vanco IV + Zosyn 01/03/19 0546 01/03/19 0546 24H INTERVAL SUMMARY * No new issues, resting, no fevers, VSS, pain present -- he has Rx for pain meds * Chart reviewed MICRO * 01/01/19 Left toe wound cx: WOUND CULTURE Preliminary Organism 1 SERRATIA MARCESCENS QUANTITY 1+ Organism 2 STAPHYLOCOCCUS AUREUS QUANTITY 1+ S MARCESCE M.I.C. RX --------- --- CEFOTAXIME S CIPROFLOXACIN <=0.25 S GENTAMICIN <=1 S LEVOFLOXACIN <=0.12 S TOBRAMYCIN 2 S TRIMETHOPRIM/SULFAMETHOXAZOLE <=20 S PIPERACILLIN/TAZOBACTAM S PHYSICAL EXAMINATION: GENERAL: Afebrile, VSS HEENT: AT, NC, anicteric NECK: Grossly normal CHEST: Equal chest rise bilaterally = without dyspnea HEART: Pulse RRR ABDOMEN: Soft / ND EXTREMITIES: Warm, left foot DSG C/D/I SKIN: No rash, no diaphoresis ID ASSESSMENT 58 yo M admit with: 1. Left first toe DFI, possible abscess * 01/01/19 Left toe wound cx: WOUND CULTURE Preliminary Organism 1 SERRATIA MARCESCENS QUANTITY 1+ Organism 2 STAPHYLOCOCCUS AUREUS QUANTITY 1+ 2. Hx of osteomyelitis LEFT foot distal phalanx of the 2nd toe - JUN 2018 3. 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 Chronic PAD w/ hx of LEXT bypass 5. Cough/ coryza, ruled out influenza 6. HTN 7. Past tobacco 8. COPD suspected 9. Obesity MRSA Nares -> Pending ABX ALLERGIES: KNDA INVASIVES: PIV CURRENT ABX: DAY # 2 => Vanco IV + Zosyn ID RECOMMENDATIONS/PLAN: 1. Continue current ABX -- await final micro 2. Check nares for MRSA . Consultation Date/Type/Reason Admit Date/Time Jan 01, 2019 at 11:59 Initial Consult Date Date/Time of Note DATE: 01/03/19 TIME: 18:02 Exam/Review of Systems Exam Vitals Vital Signs Date Temp Pulse Resp B/P (MAP) Pulse Ox O2 O2 Flow FiO2 Time Delivery Rate 01/03/19 98.9 67 18 159/75 96 13:40 (103) 01/01/19 Room Air 13:45 Intake and Output 01/02/19 01/02/19 01/03/19 1515:00 23:00 07:00 IntakeIntake Total 1510 ml 830 ml 1880 ml BalanceBalance 1510 ml 830 ml 1880 ml Results Result Diagram: 01/03/19 0546 01/03/19 0546 Results 24hrs Laboratory Tests Test 01/02/19 20:25 01/03/19 05:46 01/03/19 07:59 01/03/19 12:12 Bedside Glucose 155 154 176 White Blood Count 8.3 Red Blood Count 4.06 L Hemoglobin 11.5 L Hematocrit 35.6 L Mean Corpuscular 87.7 Volume Mean Corpuscular 28.3 L Hemoglobin Mean Corpuscular 32.3 Hemoglobin Concent Red Cell 13.1 Distribution Width Platelet Count 251 Mean Platelet Volume 9.8 Immature 0.400 Granulocytes % Neutrophils % 70.5 Lymphocytes % 18.3 Monocytes % 6.9 Eosinophils % 3.4 Basophils % 0.5 Nucleated Red Blood 0.0 Cells % Immature 0.030 Granulocytes # Neutrophils # 5.9 Lymphocytes # 1.5 Monocytes # 0.6 Eosinophils # 0.3 Basophils # 0.0 Nucleated Red Blood 0.0 Cells # Sodium Level 139 Potassium Level 4.9 Chloride Level 100 Carbon Dioxide Level 30 Anion Gap 9 Blood Urea Nitrogen 15 Creatinine 0.94 Est Glomerular > 60 Filtrat Rate mL/min Glucose Level 165 Calcium Level 9.3 Free Thyroxine 1.84 H Total 0.93 L Triiodothyronine Test 01/03/19 17:24 Bedside Glucose 153 Medications Medication Current Medications Sodium Chloride 1,000 ml @ 50 mls/hr Q20H IV Last administered on 01/03/19at 12:14; Admin Dose 50 MLS/HR; Start 01/01/19 at 15:19 IV Flush (NS 3 ml) 3 ml PER PROTOCOL IV ; Start 01/01/19 at 15:30 Ondansetron HCl (Zofran Inj) 4 mg Q6H PRN IV NAUSEA/VOMITING; Start 01/01/19 at 15:30 Acetaminophen (Tylenol Tab) 650 mg Q6H PRN PO .PAIN 1-3 OR TEMP; Start 01/01/19 at 15:30 Oxycodone/ Acetaminophen (Percocet (5/ 325)) 1 tab Q6H PRN PO .MOD PAIN 4-6; Start 01/01/19 at 15:30 Morphine Sulfate (morphine) 2 mg Q4H PRN IV .SEVERE PAIN 7-10; Start 01/01/19 at 15:30 Docusate Sodium (Colace) 100 mg Q12H PRN PO .CONSTIPATION; Start 01/01/19 at 15:30 Magnesium Hydroxide (Milk Of Mag) 30 ml DAILY PRN PO .CONSTIPATION; Start 01/01/19 at 15:30 Bisacodyl (Dulcolax Supp) 10 mg DAILY PRN [place] .CONSTIPATION; Start 01/01/19 at 15:30 Diagnostic Test (Pha) (Accu-Chek) 1 ea 02 XX Last administered on 01/02/19at 02:29; Admin Dose 1 EA; Start 01/02/19 at 02:00 Insulin Aspart (Novolog Insulin Pen) NOVOLOG *MODERATE* ALGORITHM WITH MEALS BEDTIME SC Last administered on 01/03/19 17:28; Admin Dose 2 UNIT; Start 01/01/19 at 18:00 Aspirin (Aspirin) 81 mg DAILY PO Last administered on 01/03/19 08:45; Admin Dose 81 MG; Start 01/01/19 at 15:30 Clopidogrel Bisulfate (plaVIX) 75 mg DAILY PO Last administered on 01/03/19 08:45; Admin Dose 75 MG; Start 01/01/19 at 16:30 Lisinopril (Zestril) 20 mg DAILY PO Last administered on 01/03/19at 08:46; Admin Dose 20 MG; Start 01/01/19 at 15:30 Metoprolol Tartrate (Lopressor) 25 mg BID PO Last administered on 01/03/19at 0 8:46; Admin Dose 25 MG; Start 01/01/19 at 21:00 Atorvastatin Calcium (Lipitor) 10 mg QHS PO Last administered on 01/02/19at 20:25; Admin Dose 10 MG; Start 01/01/19 at 21:00 Miscellaneous Information (Pending [facility] Order For Wound Care) This patient alarcon... PRN PRN XX WOUND CARE; Start 01/01/19 at 15:30 Miscellaneous Information 1 ea NOTE XX ; Start 01/01/19 at 16:00 Glucose (Glutose) 15 gm Q15M PRN PO DECREASED GLUCOSE; Start 01/01/19 at 16:00 Glucose (Glutose) 22.5 gm Q15M PRN PO DECREASED GLUCOSE; Start 01/01/19 at 16:00 Dextrose (D50w Syringe) 25 ml Q15M PRN IV DECREASED GLUCOSE; Start 01/01/19 at 16:00 Dextrose (D50w Syringe) 50 ml Q15M PRN IV DECREASED GLUCOSE; Start 01/01/19 at 16:00 Glucagon (Glucagen) 1 mg Q15M PRN IM DECREASED GLUCOSE; Start 01/01/19 at 16:00 Glucose (Glutose) 15 gm Q15M PRN BUCCAL DECREASED GLUCOSE; Start 01/01/19 at 16:00 Vancomycin HCl (Vanco Iv Per Pharmacy) VANCOMYCIN PER PHARMACY PER PROTOCOL XX ; Start 01/01/19 at 17:30 Clonidine (Catapres) 0.1 mg Q4H PRN PO ELEVATED SYSTOLIC BP Last administered on 01/02/19at 21:28; Admin Dose 0.1 MG; Start 01/01/19 at 18:30 Piperacillin Sod/ Tazobactam Sod 100 ml @ 200 mls/hr Q6 IVPB Last administered on 01/03/19at 17:25; Admin Dose 200 MLS/HR; Start 01/02/19 at 12:00 Vancomycin HCl 250 ml @ 125 mls/hr Q12H IVPB Last administered on 01/03/19at 08:45; Admin Dose 125 MLS/HR; Start 01/02/19 at 21:00 Guaifenesin/ Dextromethorphan (Robitussin Dm Liquid Cup) 5 ml Q4H PRN PO COUGH Last administered on 01/03/19at 05:43; Admin Dose 5 ML; Start 01/02/19 at 20:30 Miscellaneous Information (*Rx Drug Level Order Reminder*) 1 ONCE ONCE XX ; Start 01/03/19 at 20:00; Stop 01/03/19 at 20:01 BLANCO LARKIN NP Jan 03, 2019 18:07
--- NOTE | 2019-01-03 18:31 | PN ---
Date/Time of Note Date/Time of Note DATE: 01/03/19 TIME: 18:29 Assessment/Plan VTE Prophylaxis Risk score (from Ns)>0 risk: 1 SCD applied (from Ns): No SCD contraindicated: low risk/ambulating Pharmacological prophylaxis: LMWH Lines/Catheters IV Catheter Type (from Nrs): Peripheral IV Assessment/Plan Hospital Course A/P 1. Left first toe DFI, stable cont ~6wks atb; picc; podiatry eval 2. Type 2 diabetes 3. Metabolic syndrome 4. Chronic PAD/infrapop disease; h/o Revascularization. 5. Cough/ coryza, ruled out influenza 6. Diabetes 7. Past tobacco 8. COPD? 9. H/o lt 1st toe OM; then Gangrene which resolved 10. Nonadherence to dme/ wt bearing therapy PE No pallor Regular no mrg Clear Benign No edema; likely diabetic neuropathy. lt first toe w mild edema and erythema minimal warmth of any Result Diagram: 01/03/19 0546 01/03/19 0546 Results 24hrs Laboratory Tests Test 01/02/19 20:25 01/03/19 05:46 01/03/19 07:59 01/03/19 12:12 Bedside Glucose 155 154 176 White Blood Count 8.3 Red Blood Count 4.06 L Hemoglobin 11.5 L Hematocrit 35.6 L Mean Corpuscular 87.7 Volume Mean Corpuscular 28.3 L Hemoglobin Mean Corpuscular 32.3 Hemoglobin Concent Red Cell 13.1 Distribution Width Platelet Count 251 Mean Platelet Volume 9.8 Immature 0.400 Granulocytes % Neutrophils % 70.5 Lymphocytes % 18.3 Monocytes % 6.9 Eosinophils % 3.4 Basophils % 0.5 Nucleated Red Blood 0.0 Cells % Immature 0.030 Granulocytes # Neutrophils # 5.9 Lymphocytes # 1.5 Monocytes # 0.6 Eosinophils # 0.3 Basophils # 0.0 Nucleated Red Blood 0.0 Cells # Sodium Level 139 Potassium Level 4.9 Chloride Level 100 Carbon Dioxide Level 30 Anion Gap 9 Blood Urea Nitrogen 15 Creatinine 0.94 Est Glomerular > 60 Filtrat Rate mL/min Glucose Level 165 Calcium Level 9.3 Free Thyroxine 1.84 H Total 0.93 L Triiodothyronine Test 01/03/19 17:24 Bedside Glucose 153 Exam/Review of Systems Exam Vitals Vital Signs Date Temp Pulse Resp B/P (MAP) Pulse Ox O2 O2 Flow FiO2 Time Delivery Rate 01/03/19 98.9 67 18 159/75 96 13:40 (103) 01/01/19 Room Air 13:45 Intake and Output 01/02/19 01/02/19 01/03/19 1414:59 22:59 06:59 IntakeIntake Total 1510 ml 830 ml 1880 ml BalanceBalance 1510 ml 830 ml 1880 ml Results Results 24hrs Laboratory Tests Test 01/02/19 20:25 01/03/19 05:46 01/03/19 07:59 01/03/19 12:12 Bedside Glucose 155 154 176 White Blood Count 8.3 Red Blood Count 4.06 L Hemoglobin 11.5 L Hematocrit 35.6 L Mean Corpuscular 87.7 Volume Mean Corpuscular 28.3 L Hemoglobin Mean Corpuscular 32.3 Hemoglobin Concent Red Cell 13.1 Distribution Width Platelet Count 251 Mean Platelet Volume 9.8 Immature 0.400 Granulocytes % Neutrophils % 70.5 Lymphocytes % 18.3 Monocytes % 6.9 Eosinophils % 3.4 Basophils % 0.5 Nucleated Red Blood 0.0 Cells % Immature 0.030 Granulocytes # Neutrophils # 5.9 Lymphocytes # 1.5 Monocytes # 0.6 Eosinophils # 0.3 Basophils # 0.0 Nucleated Red Blood 0.0 Cells # Sodium Level 139 Potassium Level 4.9 Chloride Level 100 Carbon Dioxide Level 30 Anion Gap 9 Blood Urea Nitrogen 15 Creatinine 0.94 Est Glomerular > 60 Filtrat Rate mL/min Glucose Level 165 Calcium Level 9.3 Free Thyroxine 1.84 H Total 0.93 L Triiodothyronine Test 01/03/19 17:24 Bedside Glucose 153 Medications Medication Current Medications Sodium Chloride 1,000 ml @ 50 mls/hr Q20H IV Last administered on 01/03/19at 12:14; Admin Dose 50 MLS/HR; Start 01/01/19 at 15:19 IV Flush (NS 3 ml) 3 ml PER PROTOCOL IV ; Start 01/01/19 at 15:30 Ondansetron HCl (Zofran Inj) 4 mg Q6H PRN IV NAUSEA/VOMITING; Start 01/01/19 at 15:30 Acetaminophen (Tylenol Tab) 650 mg Q6H PRN PO .PAIN 1-3 OR TEMP; Start 01/01/19 at 15:30 Oxycodone/ Acetaminophen (Percocet (5/ 325)) 1 tab Q6H PRN PO .MOD PAIN 4-6; Start 01/01/19 at 15:30 Morphine Sulfate (morphine) 2 mg Q4H PRN IV .SEVERE PAIN 7-10; Start 01/01/19 at 15:30 Docusate Sodium (Colace) 100 mg Q12H PRN PO .CONSTIPATION; Start 01/01/19 at 15:30 Magnesium Hydroxide (Milk Of Mag) 30 ml DAILY PRN PO .CONSTIPATION; Start 01/01/19 at 15:30 Bisacodyl (Dulcolax Supp) 10 mg DAILY PRN [place] .CONSTIPATION; Start 01/01/19 at 15:30 Diagnostic Test (Pha) (Accu-Chek) 1 ea 02 XX Last administered on 01/02/19at 02:29; Admin Dose 1 EA; Start 01/02/19 at 02:00 Insulin Aspart (Novolog Insulin Pen) NOVOLOG *MODERATE* ALGORITHM WITH MEALS BEDTIME SC Last administered on 01/03/19 17:28; Admin Dose 2 UNIT; Start 01/01/19 at 18:00 Aspirin (Aspirin) 81 mg DAILY PO Last administered on 01/03/19 08:45; Admin Dose 81 MG; Start 01/01/19 at 15:30 Clopidogrel Bisulfate (plaVIX) 75 mg DAILY PO Last administered on 01/03/19 08:45; Admin Dose 75 MG; Start 01/01/19 at 16:30 Lisinopril (Zestril) 20 mg DAILY PO Last administered on 01/03/19 08:46; Admin Dose 20 MG; Start 01/01/19 at 15:30 Metoprolol Tartrate (Lopressor) 25 mg BID PO Last administered on 01/03/19 08:46; Admin Dose 25 MG; Start 01/01/19 at 21:00 Atorvastatin Calcium (Lipitor) 10 mg QHS PO Last administered on 01/02/19at 20:25; Admin Dose 10 MG; Start 01/01/19 at 21:00 Miscellaneous Information (Pending Santyl Order For Wound Care) This patient alarcon... PRN PRN XX WOUND CARE; Start 01/01/19 at 15:30 Miscellaneous Information 1 ea NOTE XX ; Start 01/01/19 at 16:00 Glucose (Glutose) 15 gm Q15M PRN PO DECREASED GLUCOSE; Start 01/01/19 at 16:00 Glucose (Glutose) 22.5 gm Q15M PRN PO DECREASED GLUCOSE; Start 01/01/19 at 16:00 Dextrose (D50w Syringe) 25 ml Q15M PRN IV DECREASED GLUCOSE; Start 01/01/19 at 16:00 Dextrose (D50w Syringe) 50 ml Q15M PRN IV DECREASED GLUCOSE; Start 01/01/19 at 16:00 Glucagon (Glucagen) 1 mg Q15M PRN IM DECREASED GLUCOSE; Start 01/01/19 at 16:00 Glucose (Glutose) 15 gm Q15M PRN BUCCAL DECREASED GLUCOSE; Start 01/01/19 at 16:00 Vancomycin HCl (Vanco Iv Per Pharmacy) VANCOMYCIN PER PHARMACY PER PROTOCOL XX ; Start 01/01/19 at 17:30 Clonidine (Catapres) 0.1 mg Q4H PRN PO ELEVATED SYSTOLIC BP Last administered on 01/02/19at 21:28; Admin Dose 0.1 MG; Start 01/01/19 at 18:30 Piperacillin Sod/ Tazobactam Sod 100 ml @ 200 mls/hr Q6 IVPB Last administered on 01/03/19at 17:25; Admin Dose 200 MLS/HR; Start 01/02/19 at 12:00 Vancomycin HCl 250 ml @ 125 mls/hr Q12H IVPB Last administered on 01/03/19at 08:45; Admin Dose 125 MLS/HR; Start 01/02/19 at 21:00 Guaifenesin/ Dextromethorphan (Robitussin Dm Liquid Cup) 5 ml Q4H PRN PO COUGH Last administered on 01/03/19at 05:43; Admin Dose 5 ML; Start 01/02/19 at 20:30 Miscellaneous Information (*Rx Drug Level Order Reminder*) 1 ONCE ONCE XX ; Start 01/03/19 at 20:00; Stop 01/03/19 at 20:01 NAREN WOODS MD Jan 03, 2019 18:31
[2019-01-03] MEDS ORDERED: LIDOCAINE 1% (MPF) 5 ML VIAL SC ONE (19:00)
[2019-01-03 19:41] VITALS: BP 161/76; PULSE 68; RESP 18
[2019-01-03] MEDS: ATORVASTATIN 10 MG TAB PO SCH (20:51)
[2019-01-03] MEDS: LACTOBACILLUS RHAMNOSUS CAP PO SCH (20:51)
[2019-01-04] VITALS (7 sets, daily range): BP systolic 124–186; BP diastolic 62–86; PULSE 61–76; RESP 16–18
[2019-01-04] MEDS: ACCU-CHEK XX SCH (01:56)
[2019-01-04] MEDS: PIPER-TAZO 3.375 GM IV (PMX) 100 ML IVPB SCH ×3 (05:54→18:50)
[2019-01-04] MEDS: INSULIN ASPART [NOVOLOG] 3 ML PEN SC SCH ×4 (08:37→21:52)
[2019-01-04] MEDS: LISINOPRIL 20 MG TAB PO SCH (08:38)
[2019-01-04] MEDS: LACTOBACILLUS RHAMNOSUS CAP PO SCH ×2 (08:38→21:40)
[2019-01-04] MEDS: CLOPIDOGREL 75 MG TAB PO SCH (08:38)
[2019-01-04] MEDS: ASPIRIN 81 MG TAB PO SCH (08:38)
[2019-01-04] MEDS: METOPROLOL 25 MG TAB PO SCH ×2 (08:39→21:40)
[2019-01-04] MEDS: VANCOMYCIN 1 GM 250 ML IVPB SCH ×2 (08:46→21:41)
[2019-01-04] MEDS: GUAIFENESIN/DM 5ML CUP PO PRN ×2 (09:05→22:03)
--- NOTE | 2019-01-04 14:14 | PN ---
Date/Time of Note Date/Time of Note DATE: 01/04/19 TIME: 14:12 Assessment/Plan VTE Prophylaxis Risk score (from Nsg)>0 risk: 4 SCD applied (from Nsg): No SCD contraindicated: low risk/ambulating Pharmacological prophylaxis: LMWH Lines/Catheters IV Catheter Type (from Nrsg): PICC Line Central line still needed: Yes Assessment/Plan Hospital Course A/P 1. Left first toe DFI, stable cont ~6wks atb; picc today; podiatry eval pending 2. Type 2 diabetes 3. Metabolic syndrome 4. Chronic PAD/infrapop disease; h/o Revascularization. 5. Cough/ coryza, ruled out influenza 6. Diabetes 7. Past tobacco 8. COPD? 9. H/o lt 1st toe OM; then Gangrene which resolved 10. Nonadherence to dme/ wt bearing therapy. need boot & PT S: No distress. for PICC day. Once boot is here and patient is cleared by PT, then home. PE No pallor Regular no mrg Clear Benign No edema; likely diabetic neuropathy. lt first toe w mild edema and erythema minimal warmth of any Result Diagram: 01/03/1946 01/03/19 0546 Results 24hrs Laboratory Tests Test 01/03/19 17:24 01/03/19 20:05 01/03/19 20:56 01/04/19 01:53 Bedside Glucose 153 187 137 Vancomycin Level 13.6 Trough Test 01/04/19 07:59 01/04/19 12:28 Bedside Glucose 143 172 Exam/Review of Systems Exam Vitals Vital Signs Date Temp Pulse Resp B/P (MAP) Pulse Ox O2 O2 Flow FiO2 Time Delivery Rate 01/04/19 62 150/66 12:33 (94) 01/04/19 98.3 16 97 07:19 01/01/19 Room Air 13:45 Intake and Output 01/03/19 01/03/19 01/04/19 1515:00 23:00 07:00 IntakeIntake Total 1510 ml 1290 ml 200 ml OutputOutput Total 1000 ml BalanceBalance 510 ml 1290 ml 200 ml Results Results 24hrs Laboratory Tests Test 01/03/19 17:24 01/03/19 20:05 01/03/19 20:56 01/04/19 01:53 Bedside Glucose 153 187 137 Vancomycin Level 13.6 Trough Test 01/04/19 07:59 01/04/19 12:28 Bedside Glucose 143 172 Medications Medication Current Medications IV Flush (NS 3 ml) 3 ml PER PROTOCOL IV ; Start 01/01/19 at 15:30 Ondansetron HCl (Zofran Inj) 4 mg Q6H PRN IV NAUSEA/VOMITING; Start 01/01/19 at 15:30 Acetaminophen (Tylenol Tab) 650 mg Q6H PRN PO .PAIN 1-3 OR TEMP; Start 01/01/19 at 15:30 Oxycodone/ Acetaminophen (Percocet (5/ 325)) 1 tab Q6H PRN PO .MOD PAIN 4-6; Start 01/01/19 at 15:30 Morphine Sulfate (morphine) 2 mg Q4H PRN IV .SEVERE PAIN 7-10; Start 01/01/19 at 15:30 Docusate Sodium (Colace) 100 mg Q12H PRN PO .CONSTIPATION; Start 01/01/19 at 15:30 Magnesium Hydroxide (Milk Of Mag) 30 ml DAILY PRN PO .CONSTIPATION; Start 01/01/19 at 15:30 Bisacodyl (Dulcolax Supp) 10 mg DAILY PRN [place] .CONSTIPATION; Start 01/01/19 at 15:30 Diagnostic Test (Pha) (Accu-Chek) 1 ea 02 XX Last administered on 01/02/19at 02:29; Admin Dose 1 EA; Start 01/02/19 at 02:00 Insulin Aspart (Novolog Insulin Pen) NOVOLOG *MODERATE* ALGORITHM WITH MEALS BEDTIME SC Last administered on 01/04/19at 12:46; Admin Dose 2 UNIT; Start 01/01/19 at 18:00 Aspirin (Aspirin) 81 mg DAILY PO Last administered on 01/04/19at 08:38; Admin Dose 81 MG; Start 01/01/19 at 15:30 Clopidogrel Bisulfate (plaVIX) 75 mg DAILY PO Last administered on 01/04/19at 08:38; Admin Dose 75 MG; Start 01/01/19 at 16:30 Lisinopril (Zestril) 20 mg DAILY PO Last administered on 01/04/19at 08:38; Admin Dose 20 MG; Start 01/01/19 at 15:30 Metoprolol Tartrate (Lopressor) 25 mg BID PO Last administered on 01/04/19at 08:39; Admin Dose 25 MG; Start 01/01/19 at 21:00 Atorvastatin Calcium (Lipitor) 10 mg QHS PO Last administered on 01/03/19at 20:51; Admin Dose 10 MG; Start 01/01/19 at 21:00 Miscellaneous Information (Pending Santyl Order For Wound Care) This patient alarcon... PRN PRN XX WOUND CARE; Start 01/01/19 at 15:30 Miscellaneous Information 1 ea NOTE XX ; Start 01/01/19 at 16:00 Glucose (Glutose) 15 gm Q15M PRN PO DECREASED GLUCOSE; Start 01/01/19 at 16:00 Glucose (Glutose) 22.5 gm Q15M PRN PO DECREASED GLUCOSE; Start 01/01/19 at 16:00 Dextrose (D50w Syringe) 25 ml Q15M PRN IV DECREASED GLUCOSE; Start 01/01/19 at 16:00 Dextrose (D50w Syringe) 50 ml Q15M PRN IV DECREASED GLUCOSE; Start 01/01/19 at 16:00 Glucagon (Glucagen) 1 mg Q15M PRN IM DECREASED GLUCOSE; Start 01/01/19 at 16:00 Glucose (Glutose) 15 gm Q15M PRN BUCCAL DECREASED GLUCOSE; Start 01/01/19 at 16:00 Vancomycin HCl (Vanco Iv Per Pharmacy) VANCOMYCIN PER PHARMACY PER PROTOCOL XX ; Start 01/01/19 at 17:30 Clonidine (Catapres) 0.1 mg Q4H PRN PO ELEVATED SYSTOLIC BP Last administered on 01/04/19at 12:38; Admin Dose 0.1 MG; Start 01/01/19 at 18:30 Piperacillin Sod/ Tazobactam Sod 100 ml @ 200 mls/hr Q6 IVPB Last administered on 01/04/19at 12:38; Admin Dose 200 MLS/HR; Start 01/02/19 at 12:00 Vancomycin HCl 250 ml @ 125 mls/hr Q12H IVPB Last administered on 01/04/19at 08:46; Admin Dose 125 MLS/HR; Start 01/02/19 at 21:00 Guaifenesin/ Dextromethorphan (Robitussin Dm Liquid Cup) 5 ml Q4H PRN PO COUGH Last administered on 01/04/19at 09:05; Admin Dose 5 ML; Start 01/02/19 at 20:30 Lactobacillus Acidophilus/ Rhamnosus (Culturelle) 1 cap BID PO Last administered on 01/04/19at 08:38; Admin Dose 1 CAP; Start 01/03/19 at 21:00 NAREN WOODS MD Jan 04, 2019 14:14
--- NOTE | 2019-01-04 15:55 | CONS ---
Assessment/Plan Assessment/Plan Hospital Course (Demo Recall) ID PROGRESS NOTE CURRENT ABX: DAY # 3 => Vanco IV + Zosyn 01/03/19 0546 01/03/19 0546 24H INTERVAL SUMMARY * No new issues, resting, no fevers, VSS, pain present -- he has Rx for pain meds * Chart reviewed MICRO * 01/03/19 MRSA SCREEN Preliminary Screening in process * 01/01/19 Left toe wound cx: WOUND CULTURE Final Organism 1 SERRATIA MARCESCENS QUANTITY 1+ Organism 2 STAPHYLOCOCCUS AUREUS QUANTITY 1+ S MARCESCE S AUREUS M.I.C. RX M.I.C. RX --------- --- --------- --- CEFAZOLIN S CEFOTAXIME S CIPROFLOXACIN <=0.25 S <=0.5 S CLINDAMYCIN <=0.25 S DOXYCYCLINE S ERYTHROMYCIN <=0.25 S GENTAMICIN <=1 S LEVOFLOXACIN <=0.12 S 0.25 S OXACILLIN 0.5 S PENICILLIN-G >=0.5 R RIFAMPIN <=0.5 S VANCOMYCIN <=0.5 S TOBRAMYCIN 2 S TRIMETHOPRIM/SULFAMETHOXAZOLE <=20 S <=10 S PIPERACILLIN/TAZOBACTAM S PHYSICAL EXAMINATION: GENERAL: Afebrile, VSS HEENT: AT, NC, anicteric NECK: Grossly normal CHEST: Equal chest rise bilaterally = without dyspnea HEART: Pulse RRR ABDOMEN: Soft / ND EXTREMITIES: Warm, left foot DSG C/D/I SKIN: No rash, no diaphoresis ID ASSESSMENT 58 yo M admit with: 1. Left first toe DFI, possible abscess * 01/01/19 Left toe wound cx: WOUND CULTURE Organism 1 SERRATIA MARCESCENS QUANTITY 1+ Organism 2 STAPHYLOCOCCUS AUREUS QUANTITY 1+ 2. Hx of osteomyelitis LEFT foot distal phalanx of the 2nd toe - JUN 2018 3. 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 Chronic PAD w/ hx of LEXT bypass 5. Cough/ coryza, ruled out influenza 6. HTN 7. Past tobacco 8. COPD suspected 9. Obesity MRSA Nares -> Pending ABX ALLERGIES: KNDA INVASIVES: PIV CURRENT ABX: DAY # 2 => Vanco IV + Zosyn ID RECOMMENDATIONS/PLAN: 1. Continue current ABX -- await final micro Checking nares for MRSA 2. Repeat MRI left foot ordered -- new great toe ulcer since prior MRI JUN 2018 3. If new evidence of osteomyelitis in great toe, he will need 6 weeks ABX; otherwise due to hx of OM and recurrent DFU anticipate 4 weeks. . Consultation Date/Type/Reason Admit Date/Time Jan 01, 2019 at 11:59 Initial Consult Date Date/Time of Note DATE: 01/04/19 TIME: 15:49 Exam/Review of Systems Exam Vitals Vital Signs Date Temp Pulse Resp B/P (MAP) Pulse Ox O2 O2 Flow FiO2 Time Delivery Rate 01/04/19 98.0 66 16 150/72 96 14:52 (98) 01/01/19 Room Air 13:45 Intake and Output 01/03/19 01/03/19 01/04/19 1515:00 23:00 07:00 IntakeIntake Total 1510 ml 1290 ml 200 ml OutputOutput Total 1000 ml BalanceBalance 510 ml 1290 ml 200 ml Results Result Diagram: 01/03/19 0546 01/03/19 0546 Results 24hrs Laboratory Tests Test 01/03/19 17:24 01/03/19 20:05 01/03/19 20:56 01/04/19 01:53 Bedside Glucose 153 187 137 Vancomycin Level 13.6 Trough Test 01/04/19 07:59 01/04/19 12:28 Bedside Glucose 143 172 Medications Medication Current Medications IV Flush (NS 3 ml) 3 ml PER PROTOCOL IV ; Start 01/01/19 at 15:30 Ondansetron HCl (Zofran Inj) 4 mg Q6H PRN IV NAUSEA/VOMITING; Start 01/01/19 at 15:30 Acetaminophen (Tylenol Tab) 650 mg Q6H PRN PO .PAIN 1-3 OR TEMP; Start 01/01/19 at 15:30 Oxycodone/ Acetaminophen (Percocet (5/ 325)) 1 tab Q6H PRN PO .MOD PAIN 4-6; Start 01/01/19 at 15:30 Morphine Sulfate (morphine) 2 mg Q4H PRN IV .SEVERE PAIN 7-10; Start 01/01/19 at 15:30 Docusate Sodium (Colace) 100 mg Q12H PRN PO .CONSTIPATION; Start 01/01/19 at 1 5:30 Magnesium Hydroxide (Milk Of Mag) 30 ml DAILY PRN PO .CONSTIPATION; Start 01/01/19 at 15:30 Bisacodyl (Dulcolax Supp) 10 mg DAILY PRN [place] .CONSTIPATION; Start 01/01/19 at 15:30 Diagnostic Test (Pha) (Accu-Chek) 1 ea 02 XX Last administered on 01/02/19at 02:29; Admin Dose 1 EA; Start 01/02/19 at 02:00 Insulin Aspart (Novolog Insulin Pen) NOVOLOG *MODERATE* ALGORITHM WITH MEALS BEDTIME SC Last administered on 01/04/19at 12:46; Admin Dose 2 UNIT; Start 01/01/19 at 18:00 Aspirin (Aspirin) 81 mg DAILY PO Last administered on 01/04/19at 08:38; Admin Dose 81 MG; Start 01/01/19 at 15:30 Clopidogrel Bisulfate (plaVIX) 75 mg DAILY PO Last administered on 01/04/19at 08:38; Admin Dose 75 MG; Start 01/01/19 at 16:30 Lisinopril (Zestril) 20 mg DAILY PO Last administered on 01/04/19at 08:38; Admin Dose 20 MG; Start 01/01/19 at 15:30 Metoprolol Tartrate (Lopressor) 25 mg BID PO Last administered on 01/04/19at 08:39; Admin Dose 25 MG; Start 01/01/19 at 21:00 Atorvastatin Calcium (Lipitor) 10 mg QHS PO Last administered on 01/03/19at 20:51; Admin Dose 10 MG; Start 01/01/19 at 21:00 Miscellaneous Information (Pending [facility] Order For Wound Care) This patient alarcon... PRN PRN XX WOUND CARE; Start 01/01/19 at 15:30 Miscellaneous Information 1 ea NOTE XX ; Start 01/01/19 at 16:00 Glucose (Glutose) 15 gm Q15M PRN PO DECREASED GLUCOSE; Start 01/01/19 at 16:00 Glucose (Glutose) 22.5 gm Q15M PRN PO DECREASED GLUCOSE; Start 01/01/19 at 16:00 Dextrose (D50w Syringe) 25 ml Q15M PRN IV DECREASED GLUCOSE; Start 01/01/19 at 16:00 Dextrose (D50w Syringe) 50 ml Q15M PRN IV DECREASED GLUCOSE; Start 01/01/19 at 16:00 Glucagon (Glucagen) 1 mg Q15M PRN IM DECREASED GLUCOSE; Start 01/01/19 at 16:00 Glucose (Glutose) 15 gm Q15M PRN BUCCAL DECREASED GLUCOSE; Start 01/01/19 at 16:00 Vancomycin HCl (Vanco Iv Per Pharmacy) VANCOMYCIN PER PHARMACY PER PROTOCOL XX ; Start 01/01/19 at 17:30 Clonidine (Catapres) 0.1 mg Q4H PRN PO ELEVATED SYSTOLIC BP Last administered on 01/04/19at 12:38; Admin Dose 0.1 MG; Start 01/01/19 at 18:30 Piperacillin Sod/ Tazobactam Sod 100 ml @ 200 mls/hr Q6 IVPB Last administered on 01/04/19at 12:38; Admin Dose 200 MLS/HR; Start 01/02/19 at 12:00 Vancomycin HCl 250 ml @ 125 mls/hr Q12H IVPB Last administered on 01/04/19at 08:46; Admin Dose 125 MLS/HR; Start 01/02/19 at 21:00 Guaifenesin/ Dextromethorphan (Robitussin Dm Liquid Cup) 5 ml Q4H PRN PO COUGH Last administered on 01/04/19 09:05; Admin Dose 5 ML; Start 01/02/19 at 20:30 Lactobacillus Acidophilus/ Rhamnosus (Culturelle) 1 cap BID PO Last administered on 01/04/19 08:38; Admin Dose 1 CAP; Start 01/03/19 at 21:00 BLANCO LARKIN NP Jan 04, 2019 15:55
[2019-01-04] MEDS: ATORVASTATIN 10 MG TAB PO SCH (21:40)
--- NOTE | 2019-01-04 23:49 | PN ---
Date/Time of Note Date/Time of Note DATE: 01/04/19 TIME: 23:49 Assessment/Plan Lines/Catheters IV Catheter Type (from [facility]): PICC Line Exam/Review of Systems Vital Signs Vitals Vital Signs Date Temp Pulse Resp B/P (MAP) Pulse Ox O2 O2 Flow FiO2 Time Delivery Rate 01/04/19 98.6 69 18 124/66 98 19:45 (85) 01/01/19 Room Air 13:45 Intake and Output 01/03/19 01/03/19 01/04/19 1515:00 23:00 07:00 IntakeIntake Total 1510 ml 1290 ml 200 ml OutputOutput Total 1000 ml BalanceBalance 510 ml 1290 ml 200 ml Results Result Diagram: 01/03/19 0546 01/03/19 0546 YAMILET CAICEDO MD Jan 04, 2019 23:49
[2019-01-05] MEDS: PIPER-TAZO 3.375 GM IV (PMX) 100 ML IVPB SCH ×3 (00:39→13:34)
[2019-01-05 02:00] VITALS: BP 151/62; RESP 17
[2019-01-05] MEDS: ACCU-CHEK XX SCH (02:00)
[2019-01-05 07:45] VITALS: BP 161/81; PULSE 61; RESP 18
[2019-01-05] MEDS: INSULIN ASPART [NOVOLOG] 3 ML PEN SC SCH ×4 (08:00→21:00)
[2019-01-05] MEDS: LACTOBACILLUS RHAMNOSUS CAP PO SCH ×2 (09:22→21:25)
[2019-01-05] MEDS: METOPROLOL 25 MG TAB PO SCH ×2 (09:23→21:26)
[2019-01-05] MEDS: LISINOPRIL 20 MG TAB PO SCH (09:23)
[2019-01-05] MEDS: ASPIRIN 81 MG TAB PO SCH (09:23)
[2019-01-05] MEDS: CLOPIDOGREL 75 MG TAB PO SCH (09:23)
[2019-01-05] MEDS: VANCOMYCIN 1 GM 250 ML IVPB SCH (09:24)
[2019-01-05] MEDS: GUAIFENESIN/DM 5ML CUP PO PRN ×3 (11:32→22:48)
--- NOTE | 2019-01-05 12:36 | PN ---
Date/Time of Note Date/Time of Note DATE: 01/05/19 TIME: 12:35 Assessment/Plan VTE Prophylaxis Risk score (from Nsg)>0 risk: 3 SCD applied (from Ns): No SCD contraindicated: other Pharmacological prophylaxis: LMWH Lines/Catheters IV Catheter Type (from Nrsg): PICC Line Central line still needed: Yes Assessment/Plan Hospital Course SUBJECTIVE: Denies any left lower extremity pain. OBJECTIVE: Physical Exam General: Adequately build 58 year-old male lying in bed in no apparent distress. HEENT: Normocephalic, atraumatic. Eyes: Anicteric sclerae, conjunctivae clear. ENT: Nasal septum midline, oral mucosa moist. Neck supple, no JVD noticed. Respiratory: Bilaterally clear breath sounds. No use of accessory muscles of respiration. No adventitious breath sounds. Cardiovascular: S1, S2 heard. Regular rate and rhythm. Abdomen: Soft, nontender, and nondistended. Bowel sounds positive in all 4 quadrants. Genitourinary: Deferred. Extremities: No cyanosis, no clubbing, no edema. Left great toe wound on the medial surface. Neurologic: Cranial nerves II through XII grossly intact. The patient is awake, alert, and oriented. Labs & Vitals per chart ASSESSMENT & PLAN 58-year-old male with comorbidities including diabetes mellitus, hypertension, peripheral artery disease, and nicotine use who was admitted for further evaluation of left foot diabetic ulceration. 1. Left foot diabetic ulceration. -On antimicrobials as per ID. -Being followed by vascular surgery. -Await podiatry evaluation. 2. Osteomyelitis of the mid to distal first proximal phalanx and the entire first phalanx on the left foot. -On antimicrobials as per ID. 3. Diabetes mellitus. -Hemoglobin A1c 7.9. -Continue sliding scale insulin. 4. Essential hypertension -Continue antihypertensives. 5. Peripheral vascular disease, S/P revascularization. -Continue aspirin and Plavix. 6. Normocytic anemia. -Most probably anemia chronic disease. -Monitor H&H closely. 7. Fluids, electrolytes, and nutrition. -Carbohydrate controlled diet. 8. DVT prophylaxis. -Subcutaneous Lovenox. 9. Plan. -Continue antimicrobials as per ID. -Await podiatry evaluation. The patient was seen in collaboration with Dr. Wilson. Result Diagram: 01/03/19 0546 01/05/19 0443 Results 24hrs Laboratory Tests Test 2/17/19 18:44 01/04/19 21:45 01/05/19 02:14 01/05/19 04:43 Bedside Glucose 171 209 261 H Blood Urea Nitrogen 16 Creatinine 1.01 Test 01/05/19 08:23 Bedside Glucose 138 Exam/Review of Systems Exam Vitals Vital Signs Date Temp Pulse Resp B/P (MAP) Pulse Ox O2 O2 Flow FiO2 Time Delivery Rate 01/05/19 98.3 61 18 161/81 98 07:45 (107) 01/01/19 Room Air 13:45 Intake and Output 01/04/19 01/04/19 01/05/19 1515:00 23:00 07:00 IntakeIntake Total 1650 ml 1660 ml 590 ml OutputOutput Total 250 ml BalanceBalance 1400 ml 1660 ml 590 ml Results Results 24hrs Laboratory Tests Test 01/04/19 18:44 01/04/19 21:45 01/05/19 02:14 01/05/19 04:43 Bedside Glucose 171 209 261 H Blood Urea Nitrogen 16 Creatinine 1.01 Test 01/05/19 08:23 Bedside Glucose 138 Medications Medication Current Medications IV Flush (NS 3 ml) 3 ml PER PROTOCOL IV ; Start 01/01/19 at 15:30 Ondansetron HCl (Zofran Inj) 4 mg Q6H PRN IV NAUSEA/VOMITING; Start 01/01/19 at 15:30 Acetaminophen (Tylenol Tab) 650 mg Q6H PRN PO .PAIN 1-3 OR TEMP; Start 01/01/19 at 15:30 Oxycodone/ Acetaminophen (Percocet (5/ 325)) 1 tab Q6H PRN PO .MOD PAIN 4-6; Start 01/01/19 at 15:30 Morphine Sulfate (morphine) 2 mg Q4H PRN IV .SEVERE PAIN 7-10; Start 01/01/19 at 15:30 Docusate Sodium (Colace) 100 mg Q12H PRN PO .CONSTIPATION; Start 01/01/19 at 15:30 Magnesium Hydroxide (Milk Of Mag) 30 ml DAILY PRN PO .CONSTIPATION; Start 01/01/19 at 15:30 Bisacodyl (Dulcolax Supp) 10 mg DAILY PRN IA .CONSTIPATION; Start 01/01/19 at 15:30 Diagnostic Test (Pha) (Accu-Chek) 1 ea 02 XX Last administered on 01/02/19at 02:29; Admin Dose 1 EA; Start 01/02/19 at 02:00 Insulin Aspart (Novolog Insulin Pen) NOVOLOG *MODERATE* ALGORITHM WITH MEALS BEDTIME SC Last administered on 01/04/19at 21:52; Admin Dose 1 UNIT; Start 01/01/19 at 18:00 Aspirin (Aspirin) 81 mg DAILY PO Last administered on 01/05/19 09:23; Admin Dose 81 MG; Start 01/01/19 at 15:30 Clopidogrel Bisulfate (plaVIX) 75 mg DAILY PO Last administered on 01/05/19 09:23; Admin Dose 75 MG; Start 01/01/19 at 16:30 Lisinopril (Zestril) 20 mg DAILY PO Last administered on 01/05/19 09:23; Admin Dose 20 MG; Start 01/01/19 at 15:30 Metoprolol Tartrate (Lopressor) 25 mg BID PO Last administered on 01/05/19 09:23; Admin Dose 25 MG; Start 01/01/19 at 21:00 Atorvastatin Calcium (Lipitor) 10 mg QHS PO Last administered on 01/04/19at 21:40; Admin Dose 10 MG; Start 01/01/19 at 21:00 Miscellaneous Information (Pending [facility] Order For Wound Care) This patient alarcon... PRN PRN XX WOUND CARE; Start 01/01/19 at 15:30 Miscellaneous Information 1 ea NOTE XX ; Start 01/01/19 at 16:00 Glucose (Glutose) 15 gm Q15M PRN PO DECREASED GLUCOSE; Start 01/01/19 at 16:00 Glucose (Glutose) 22.5 gm Q15M PRN PO DECREASED GLUCOSE; Start 01/01/19 at 16:00 Dextrose (D50w Syringe) 25 ml Q15M PRN IV DECREASED GLUCOSE; Start 01/01/19 at 16:00 Dextrose (D50w Syringe) 50 ml Q15M PRN IV DECREASED GLUCOSE; Start 01/01/19 at 16:00 Glucagon (Glucagen) 1 mg Q15M PRN IM DECREASED GLUCOSE; Start 01/01/19 at 16:00 Glucose (Glutose) 15 gm Q15M PRN BUCCAL DECREASED GLUCOSE; Start 01/01/19 at 16:00 Vancomycin HCl (Vanco Iv Per Pharmacy) VANCOMYCIN PER PHARMACY PER PROTOCOL XX ; Start 01/01/19 at 17:30 Clonidine (Catapres) 0.1 mg Q4H PRN PO ELEVATED SYSTOLIC BP Last administered on 01/04/19 12:38; Admin Dose 0.1 MG; Start 01/01/19 at 18:30 Piperacillin Sod/ Tazobactam Sod 100 ml @ 200 mls/hr Q6 IVPB Last administered on 01/05/19 06:24; Admin Dose 200 MLS/HR; Start 01/02/19 at 12:00 Vancomycin HCl 250 ml @ 125 mls/hr Q12H IVPB Last administered on 01/05/19 09:24; Admin Dose 125 MLS/HR; Start 01/02/19 at 21:00 Guaifenesin/ Dextromethorphan (Robitussin Dm Liquid Cup) 5 ml Q4H PRN PO COUGH Last administered on 01/05/19at 11:32; Admin Dose 5 ML; Start 01/02/19 at 20:30 Lactobacillus Acidophilus/ Rhamnosus (Culturelle) 1 cap BID PO Last administered on 01/05/19 09:22; Admin Dose 1 CAP; Start 01/03/19 at 21:00 YENNIFER ROSE NP Jan 05, 2019 12:36
[2019-01-05 14:17] VITALS: BP 135/69; PULSE 64; RESP 20
--- NOTE | 2019-01-05 15:21 | CONS ---
Assessment/Plan Assessment/Plan Hospital Course (Demo Recall) ID PROGRESS NOTE CURRENT ABX: DAY # 4=> Vanco IV + Zosyn => Change to Ceftriaxone 2gm IV daily x40 days + adjunctive Levaquin 500mg po daily x14 days 24H INTERVAL SUMMARY * No new issues, resting, no fevers, VSS, pain present -- he has Rx for pain meds * 01/04/19 MRI LEFT FOOT/GREAT TOE: PROCEDURE: MR Foot. COMPARISON: MRI examination of the left forefoot dated 07/16/2018. * FINDINGS: * At the medial aspect of the left great toe at the level of the interphalangeal joint there is a new soft tissue ulceration. There is new osteomyelitis at the mid to distal diaphysis and distal metaphysis of the first proximal phalanx and osteomyelitis of the entire distal phalanx of the right great toe. * There is no definite abscess in the region of the left great toe soft tissue defect. * Remaining osseous structures of the distal left forefoot are unremarkable. There is no evident acute fracture or dislocation. * Previously seen osteomyelitis at the middle and distal phalanges of the second toe of the right foot appears improved over interval. There is decreased T1-weighted signal involving these osseous structures, with increased fluid signal seen at the distal phalanx of the left second toe, compatible with osteomyelitis. Decreased T1-weighted signal at the middle phalanx may represent sclerosis secondary to prior osteomyelitis. This is not clear. * Cannot exclude interval resorption, amputation or destruction of the tuft of the distal phalanx of the left second toe. A plain film examination may be of further use. * There is swelling at the distal left second toe. Mild adventitial bursitis is seen at the medial aspect of the first metatarsal phalangeal joint, increased over interval. The remaining soft tissues are unremarkable. * IMPRESSION: * 1. New osteomyelitis at the mid to distal first proximal phalanx and the entire first distal phalanx. * 2. Soft tissue defect is seen at the medial aspect of the left great toe at the level of the interphalangeal joint. * 3. Decreased T1-weighted signal is seen at the distal second middle phalanx and distal phalanx. * 4. Increased fluid signal in the distal phalanx suggests osteomyelitis at the distal second toe. * 5. No definite corresponding increased fluid signal seen within the middle phalanx, and findings may represent sclerotic changes from prior osteomyelitis. * 6. Cannot exclude interval resorption, amputation or destruction of the tuft of the second distal phalanx, and a plain film examination may be of further use. MICRO * 01/03/19 MRSA SCREEN Final No methicillin resistant staphylococcus aureus isolated * 01/01/19 Left toe wound cx: WOUND CULTURE Final Organism 1 SERRATIA MARCESCENS QUANTITY 1+ Organism 2 STAPHYLOCOCCUS AUREUS QUANTITY 1+ S MARCESCE S AUREUS M.I.C. RX M.I.C. RX --------- --- --------- --- CEFAZOLIN S CEFOTAXIME S CIPROFLOXACIN <=0.25 S <=0.5 S CLINDAMYCIN <=0.25 S DOXYCYCLINE S ERYTHROMYCIN <=0.25 S GENTAMICIN <=1 S LEVOFLOXACIN <=0.12 S 0.25 S OXACILLIN 0.5 S PENICILLIN-G >=0.5 R RIFAMPIN <=0.5 S VANCOMYCIN <=0.5 S TOBRAMYCIN 2 S TRIMETHOPRIM/SULFAMETHOXAZOLE <=20 S <=10 S PIPERACILLIN/TAZOBACTAM S PHYSICAL EXAMINATION: GENERAL: Afebrile, VSS HEENT: AT, NC, anicteric NECK: Grossly normal CHEST: Equal chest rise bilaterally = without dyspnea HEART: Pulse RRR ABDOMEN: Soft / ND EXTREMITIES: Warm, left foot DSG C/D/I SKIN: No rash, no diaphoresis ID ASSESSMENT 58 yo M admit with: 1. Left first toe DFI, possible abscess =>Repeat MRI left foot 01/04/19 shows: New osteomyelitis at the mid to distal first proximal phalanx and the entire first distal phalanx. * 01/01/19 Left toe wound cx: WOUND CULTURE Organism 1 SERRATIA MARCESCENS QUANTITY 1+ Organism 2 STAPHYLOCOCCUS AUREUS QUANTITY 1+ 2. Hx of osteomyelitis LEFT foot distal phalanx of the 2nd toe - JUN 2018 3. 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 Chronic PAD w/ hx of LEXT bypass 5. Cough/ coryza, ruled out influenza 6. HTN 7. Past tobacco 8. COPD suspected 9. Obesity (-)MRSA Nares ABX ALLERGIES: KNDA INVASIVES: PIV CURRENT ABX: DAY # 3 => Vanco IV + Zosyn => Change to Ceftriaxone 2gm IV daily x40 days + adjunctive Levaquin 500mg po daily x14 days ID RECOMMENDATIONS/PLAN: 1. Repeat MRI left foot 01/04/19 shows new osteomyelitis in left great toe - he will need 6 week IV ABX 2. DC ABX RECOMMENDATIONS = He will need minimum of 6 weeks IV ABX * Both GNR and ALMA DELIA are sensitive to Ceftriaxone - d/w Dr. Magaña for final DC ABX recommendations as below: * May DC on Ceftriaxone 2gm IVPB daily for total 6 weeks * Adjunctive Levaquin moderate dose 500mg po daily x 14 days (moderate dosing and limited weeks due to risk of side effects and drug drug interactions w/anti-DM meds) . Consultation Date/Type/Reason Admit Date/Time Jan 01, 2019 at 11:59 Initial Consult Date Date/Time of Note DATE: 01/05/19 TIME: 14:58 Exam/Review of Systems Exam Vitals Vital Signs Date Temp Pulse Resp B/P (MAP) Pulse Ox O2 O2 Flow FiO2 Time Delivery Rate 01/05/19 97.8 64 20 135/69 99 14:17 (91) 01/01/19 Room Air 13:45 Intake and Output 01/04/19 01/04/19 01/05/19 1515:00 23:00 07:00 IntakeIntake Total 1650 ml 1660 ml 590 ml OutputOutput Total 250 ml BalanceBalance 1400 ml 1660 ml 590 ml Results Result Diagram: 01/03/19 0546 01/05/19 0443 Results 24hrs Laboratory Tests Test 01/04/19 18:44 01/04/19 21:45 01/05/19 02:14 01/05/19 04:43 Bedside Glucose 171 209 261 H Blood Urea Nitrogen 16 Creatinine 1.01 Test 01/05/19 08:23 01/05/19 13:39 Bedside Glucose 138 142 Medications Medication Current Medications IV Flush (NS 3 ml) 3 ml PER PROTOCOL IV ; Start 01/01/19 at 15:30 Ondansetron HCl (Zofran Inj) 4 mg Q6H PRN IV NAUSEA/VOMITING; Start 01/01/19 at 15:30 Acetaminophen (Tylenol Tab) 650 mg Q6H PRN PO .PAIN 1-3 OR TEMP; Start 01/01/19 at 15:30 Oxycodone/ Acetaminophen (Percocet (5/ 325)) 1 tab Q6H PRN PO .MOD PAIN 4-6; Start 01/01/19 at 15:30 Morphine Sulfate (morphine) 2 mg Q4H PRN IV .SEVERE PAIN 7-10; Start 01/01/19 at 15:30 Docusate Sodium (Colace) 100 mg Q12H PRN PO .CONSTIPATION; Start 01/01/19 at 15:30 Magnesium Hydroxide (Milk Of Mag) 30 ml DAILY PRN PO .CONSTIPATION; Start 01/01/19 at 15:30 Bisacodyl (Dulcolax Supp) 10 mg DAILY PRN ID .CONSTIPATION; Start 01/01/19 at 15:30 Diagnostic Test (Pha) (Accu-Chek) 1 ea 02 XX Last administered on 01/02/19at 02:29; Admin Dose 1 EA; Start 01/02/19 at 02:00 Insulin Aspart (Novolog Insulin Pen) NOVOLOG *MODERATE* ALGORITHM WITH MEALS BEDTIME SC Last administered on 01/05/19 13:44; Admin Dose 2 UNIT; Start 01/01/19 at 18:00 Aspirin (Aspirin) 81 mg DAILY PO Last administered on 01/05/19 09:23; Admin Dose 81 MG; Start 01/01/19 at 15:30 Clopidogrel Bisulfate (plaVIX) 75 mg DAILY PO Last administered on 01/05/19 09:23; Admin Dose 75 MG; Start 01/01/19 at 16:30 Lisinopril (Zestril) 20 mg DAILY PO Last administered on 01/05/19 09:23; Admin Dose 20 MG; Start 01/01/19 at 15:30 Metoprolol Tartrate (Lopressor) 25 mg BID PO Last administered on 01/05/19 09:23; Admin Dose 25 MG; Start 01/01/19 at 21:00 Atorvastatin Calcium (Lipitor) 10 mg QHS PO Last administered on 01/04/19at 21:40; Admin Dose 10 MG; Start 01/01/19 at 21:00 Miscellaneous Information (Pending [facility] Order For Wound Care) This patient alarcon... PRN PRN XX WOUND CARE; Start 01/01/19 at 15:30 Miscellaneous Information 1 ea NOTE XX ; Start 01/01/19 at 16:00 Glucose (Glutose) 15 gm Q15M PRN PO DECREASED GLUCOSE; Start 01/01/19 at 16:00 Glucose (Glutose) 22.5 gm Q15M PRN PO DECREASED GLUCOSE; Start 01/01/19 at 16:00 Dextrose (D50w Syringe) 25 ml Q15M PRN IV DECREASED GLUCOSE; Start 01/01/19 at 16:00 Dextrose (D50w Syringe) 50 ml Q15M PRN IV DECREASED GLUCOSE; Start 01/01/19 at 16:00 Glucagon (Glucagen) 1 mg Q15M PRN IM DECREASED GLUCOSE; Start 01/01/19 at 16:00 Glucose (Glutose) 15 gm Q15M PRN BUCCAL DECREASED GLUCOSE; Start 01/01/19 at 16:00 Vancomycin HCl (Vanco Iv Per Pharmacy) VANCOMYCIN PER PHARMACY PER PROTOCOL XX ; Start 01/01/19 at 17:30 Clonidine (Catapres) 0.1 mg Q4H PRN PO ELEVATED SYSTOLIC BP Last administered on 01/04/19at 12:38; Admin Dose 0.1 MG; Start 01/01/19 at 18:30 Piperacillin Sod/ Tazobactam Sod 100 ml @ 200 mls/hr Q6 IVPB Last administered on 01/05/19at 13:34; Admin Dose 200 MLS/HR; Start 01/02/19 at 12:00 Vancomycin HCl 250 ml @ 125 mls/hr Q12H IVPB Last administered on 01/05/19at 09:24; Admin Dose 125 MLS/HR; Start 01/02/19 at 21:00 Guaifenesin/ Dextromethorphan (Robitussin Dm Liquid Cup) 5 ml Q4H PRN PO COUGH Last administered on 01/05/19at 11:32; Admin Dose 5 ML; Start 01/02/19 at 20:30 Lactobacillus Acidophilus/ Rhamnosus (Culturelle) 1 cap BID PO Last administered on 01/05/19at 09:22; Admin Dose 1 CAP; Start 01/03/19 at 21:00 Enoxaparin Sodium (Lovenox) 40 mg DAILY SC ; Start 01/06/19 at 09:00 BLANCO LARKIN NP Jan 05, 2019 15:12
[2019-01-05] MEDS ORDERED: CEFTRIAXONE 2 GM/50 ML (PMX) 50 ML IVPB SCH (15:30)
[2019-01-05 20:28] VITALS: BP 162/79; PULSE 73; RESP 18
[2019-01-05] MEDS: ATORVASTATIN 10 MG TAB PO SCH (21:26)
[2019-01-06 01:22] VITALS: BP 152/70; PULSE 70; RESP 18
[2019-01-06] MEDS: ACCU-CHEK XX SCH (02:00)
[2019-01-06] MEDS ORDERED: LEVOFLOXACIN 500 MG TAB PO SCH (06:00)
--- NOTE | 2019-01-06 07:39 | PN ---
Date/Time of Note Date/Time of Note DATE: 01/06/19 TIME: 07:38 Assessment/Plan Lines/Catheters IV [facility] ([facility] P[facility] Line Assessment/Plan Chief Complaint/Hosp Course -Bilateral lower extremity atherosclerosis with left lower extremity first toe ulcer and diabetic foot infection: It seems that the patient's left lower extremity diabetic foot infection and first toe ulceration that will require to be admitted for IV antibiotics -The patient should be on IV antibiotics and recommend for home health with a PICC line. The few issues for him is that the patient unfortunately has severe infrapopliteal disease that was not amenable for a further distal bypass meeting closer to the foot. As the patient has limited conduit, at the moment would recommend for the patient to be compliant with his vascular optimization (BP meds, diet, nutrition, exercise, sugar control, antiplatelets) and his diabetic foot care, which is of importance. -A thorough foot care education for diabetic feet was performed in front of the patient and his family at the bedside and the importance of not wearing steel toe shoes as they continue to apply extensive pressure on his feet. Recommended for the patient to continue with diabetic fitted shoes. -Would recommend for physical therapy to evaluate the patient and provide him postoperative surgical shoes and he can do full weightbearing with heel touch only. -Apply Betadine paint to the second toe for now. -I have also informed our sewer connector, Dr. Dickerson, who has followed the patient in the past as well. -We will plan to evaluate his new arterial duplex to evaluate his lower extremity bypass. Unfortunately, as this is the last resort for him, I am hoping that we were able to keep this bypass patent as long as possible. -When the patient will be planned for PICC line placement, he should be transitioned from Eliquis to Lovenox and not to hold Eliquis by itself only. Please call vascular for recommendations of the transition if any questions. -Discussed findings, plan and management with the patient and the family at the bedside, they understood all that is involved and have agreed to proceed with what has been recommended for now. -Thank you for allowing us to partake in the care of your patient. Please call with any questions. Subjective 24 Hr Interval Summary no new vascular events event Constitutional: no complaints Exam/Review of Systems Vital Signs Vitals Vital Signs Date Temp Pulse Resp B/P (MAP) Pulse Ox O2 O2 Flow FiO2 Time Delivery Rate 01/06/19 97.8 70 18 152/70 97 01:22 (97) Intake and Output 01/05/19 01/05/19 01/06/19 1515:00 23:00 07:00 IntakeIntake Total 910 ml 2010 ml OutputOutput Total 800 ml BalanceBalance 910 ml 1210 ml Exam Free Text/Dictation GENERAL: Alert and oriented x3, no apparent distress. HEENT: Normocephalic, atraumatic. Mucosa moist. NECK: Supple, no carotid bruit. PULMONARY: Clear to auscultation bilaterally. No crackles. CARDIOVASCULAR: S1, S2 present. No murmurs. ABDOMEN: Soft, nontender, nondistended. Bowel sounds positive. LOWER EXTREMITIES: -Right lower extremity palpable femoral pulse, nonpalpable pedal pulse. Motor and sensory intact. Capillary refill 3 seconds. -Left lower extremity palpable femoral pulse, nonpalpable pedal pulse. Motor and sensory intact. Capillary refill 3 seconds, palpable graft at the knee. First toe with what appears to be a blister and purulent drainage, erythema extending to the metatarsal , second toe is well-healed Results Result Diagram: 01/06/19 0556 01/06/19 0556 YAMILET CAICEDO MD Jan 06, 2019 07:39
[2019-01-06 07:48] VITALS: BP 181/71; PULSE 68; RESP 19
[2019-01-06] MEDS: CLOPIDOGREL 75 MG TAB PO SCH (08:22)
[2019-01-06] MEDS: LISINOPRIL 20 MG TAB PO SCH (08:22)
[2019-01-06] MEDS: METOPROLOL 25 MG TAB PO SCH (08:22)
[2019-01-06] MEDS: LACTOBACILLUS RHAMNOSUS CAP PO SCH (08:22)
[2019-01-06] MEDS: ENOXAPARIN 40 MG/0.4 ML SYG SC SCH ×2 (08:25→09:00)
[2019-01-06] MEDS: INSULIN ASPART [NOVOLOG] 3 ML PEN SC SCH ×2 (08:25→12:00)
[2019-01-06] MEDS: ASPIRIN 81 MG TAB PO SCH (08:27)
[2019-01-06] MEDS ORDERED: LEVO500T10 PO (13:54)
[2019-01-06] MEDS ORDERED: CEFT2FRO2 IV (13:54)
--- NOTE | 2019-01-06 13:55 | PDOCDIS ---
Discharge Instructions CONDITION [id number] Patient Condition: [id number] Stable HOME CARE INSTRUCTIONS: [id number] Special Diet: [id number] Carbohydrate controlled OTHER ORDERS: Other Orders: 1. Resume home medications. 2. Complete the course of antibiotics. 3. Follow a low-cholesterol, carbohydrate controlled diet. 4. Resume activities as tolerated. 5. Follow-up with Dr. Dickerson in 2 weeks. 6. Follow-up with your primary care physician in 2 weeks. YENNIFER ROSE NP Jan 06, 2019 13:55
--- NOTE | 2019-01-06 13:57 | DS ---
Date/Time of Note Date/Time of Note DATE: 01/06/19 TIME: 13:57 Discharge Summary Admission/Discharge Info Admit Date/Time Jan 01, 2019 at 11:59 Discharge Date/Time Discharge Diagnosis 1. Left foot diabetic ulceration. 2. Osteomyelitis of the mid to distal first proximal phalanx and then the first phalanx on the left foot. 3. Diabetes mellitus. Hemoglobin A1c 7.9. 4. Essential hypertension 5. Peripheral vascular disease, S/P revascularization. 6. Normocytic anemia. Patient Condition: Stable Consults 1. Kj Magaña MD, Infectious Diseases. 2. Wesley Blount MD, Vascular Surgery. 3. Yogesh Dickerson DPM, Podiatry. Procedures Left Foot MRI IMPRESSION: 1. New osteomyelitis at the mid to distal first proximal phalanx and the entire first distal phalanx. 2. Soft tissue defect is seen at the medial aspect of the left great toe at the level of the interphalangeal joint. 3. Decreased T1-weighted signal is seen at the distal second middle phalanx and distal phalanx. 4. Increased fluid signal in the distal phalanx suggests osteomyelitis at the distal second toe. 5. No definite corresponding increased fluid signal seen within the middle phalanx, and findings may represent sclerotic changes from prior osteomyelitis. Hx of Present Illness This is a 58-year-old male with comorbidities including diabetes mellitus, hypertension, peripheral artery disease, and nicotine use who was admitted for further evaluation of left foot diabetic ulceration. Hospital Course The patient was maintained on antimicrobials as per ID. The patient underwent a left foot MRI. The MRI showed osteomyelitis of the mid to distal first proximal phalanx and the entire first phalanx on the left foot. A vascular surgery and podiatry consult was obtained. The patient has prior history of peripheral vascular disease and status post revascularization. The patient was maintained on dual antiplatelet therapy. The patient was evaluated by podiatry who follows the patient as outpatient. Podiatry recommended to continue antimicrobial therapy. The patient's chronic problems include diabetes mellitus type 2. The patient's hemoglobin A1c was found to be 7.9. He was maintained on sliding scale insulin with well-controlled blood sugars throughout the hospital course. The patient was maintained on antihypertensives for his underlying hypertension. The patient was noticed to have normocytic anemia. The patient's H&H remained stable. This could have most probably anemia of chronic disease. The patient had a stable hospital course. The patient was cleared by consultants to be discharged home. The patient had a PICC line placed for long-term IV antibiotic therapy. Home health was arranged for continuing the patient on long-term IV antibiotics to complete a course of 6 weeks. Discharge Instructions 1. Resume home medications. 2. Complete the course of antibiotics. 3. Follow a low-cholesterol, carbohydrate controlled diet. 4. Resume activities as tolerated. 5. Follow-up with Dr. Dickerson in 2 weeks. 6. Follow-up with your primary care physician in 2 weeks. The patient verbalized understanding of his discharge instructions. At this time I would like to thank all the consultants for seeing the patient and providing clinical recommendations. The patient was seen in collaboration with Dr. Wilson. Home Meds Active Scripts Ceftriaxone Na/Dextrose,Iso (Ceftriaxone 2 gm Piggyback) 2 Gm/50 Ml Froz.piggy, 2 GM IV Q24H, #42 Complete course of 6 weeks. Prov:YENNIFER ROSE NP 01/06/19 Levofloxacin* (Levofloxacin*) 500 Mg Tablet, 500 MG PO DAILY for 14 Days, #14 TAB Prov:YENNIFER ROSE NP 01/06/19 Amlodipine Besylate* (Amlodipine Besylate*) 5 Mg Tablet, 10 MG PO DAILY for 30 Days, TAB Prov:ARTEM LYN MD 07/18/18 Insulin Lispro (Humalog Kwikpen U-100) 100 Unit/1 Ml Insuln.pen, 6 UNIT SQ AC MEALS, #3 EA Prov:LEON BEST 07/16/18 Insulin Glargine,Hum.rec.anlog (Basaglar Kwikpen U-100) 100 Unit/1 Ml Insuln.pen, 14 UNIT SC QHS, #3 EA Prov:LEON BEST 07/16/18 Reported Medications Metoprolol Tartrate* (Lopressor*) 25 Mg Tab, 25 MG PO BID, #60 TAB 07/08/18 Aspirin* (Aspirin* Chew) 81 Mg Tab.chew, 81 MG PO DAILY, TAB.CHEW 07/08/18 Lisinopril* (Lisinopril*) 20 Mg Tablet, 20 MG PO DAILY, #30 TAB 07/08/18 Clopidogrel Bisulfate (Clopidogrel) 75 Mg Tablet, 75 MG PO DAILY, #30 TAB 07/08/18 Simvastatin* (Zocor*) 20 Mg Tablet, 20 MG PO QHS, #30 TAB 07/08/18 Discontinued Scripts [Vancomycin Iv Per Pharmacy] 1 EA EACH No Conflict Check, 0 EA XX .PER PROTOCOL for 42 Days, #42 Prov:LEON BEST 07/16/18 Levofloxacin* (Levaquin*) 500 Mg Tablet, 500 MG PO DAILY@06, #44 TAB Prov:LEON BEST 07/16/18 Primary Care Provider [facility] Pending Labs Laboratory Tests Test 01/05/19 17:38 01/05/19 21:24 01/06/19 05:56 01/06/19 08:14 Bedside 173 130 145 Glucose mg/dL (70-220) mg/dL (70-220) mg/dL (70-220) White Blood 8.3 Count 10^3/ul (4.8-1 0.8) Red Blood 4.06 Count 10^6/ul (4.70- 6.10) Hemoglobin 11.6 g/dl (14.0-18. 0) Hematocrit 35.3 % (42.0-52.0) Mean 86.9 Corpuscular fl (82.0-101.0 Volume ) Mean 28.6 Corpuscular pg (29.0-33.0) Hemoglobin Mean 32.9 Corpuscular g/dl (32.0-37. Hemoglobin Conc 0) ent Red Cell 12.9 Distribution % (11.5-14.5) Width Platelet Count 273 10^3/UL (140-4 15) Mean Platelet 9.7 Volume fl (7.4-10.4) Immature 0.500 Granulocytes % % (0.001-0.429 ) Neutrophils % 69.9 % (39.0-77.0) Lymphocytes % 20.7 % (15.0-51.0) Monocytes % 6.0 % (0.0-11.0) Eosinophils % 2.4 % (0.0-7.0) Basophils % 0.5 % (0.0-2.0) Nucleated Red 0.0 Blood Cells % /100WBC (0.0-0 .0) Immature 0.040 Granulocytes # 10^3/ul (0.0-0 .031) Neutrophils # 5.8 10^3/ul (1.6-7 .5) Lymphocytes # 1.7 10^3/ul (0.8-2 .9) Monocytes # 0.5 10^3/ul (0.3-0 .9) Eosinophils # 0.2 10^3/ul (0.0-0 .5) Basophils # 0.0 10^3/ul (0.0-0 .1) Nucleated Red 0.0 Blood Cells # 10^3/ul (0.0-0 .0) Sodium Level 139 mmol/L (135-14 4) Potassium 4.1 Level mmol/L (3.5-5. 1) Chloride Level 103 mmol/L (97-110 ) Carbon Dioxide 27 Level mmol/L (21-31) Anion Gap 9 (5-13) Blood Urea 16 Nitrogen mg/dl (7-20) Creatinine 0.91 mg/dl (0.61-1. 24) Est Glomerular > 60 Filtrat mL/min (>60) Rate mL/min Glucose Level 148 mg/dl (70-220) Calcium Level 9.4 mg/dl (8.4-10. 2) Phosphorus 3.5 Level mg/dl (2.5-4.9 ) Magnesium 1.8 Level mg/dl (1.7-2.5 ) Vitamin D 23.5 1,25-Dihydroxy ng/ml (30-100) Test 01/06/19 12:23 Bedside 114 Glucose mg/dL (70-220) YENNIFER ROSE NP Jan 06, 2019 13:57
== END 2019-01-06 15:00 | disposition home health service (06) | DRG 300 ==
LOC: 2NE 11:59
PROVIDERS: ADMIT Internal Medicine; ATTEND Internal Medicine
PROC: 02HV33Z Insertion of Infusion Device into Superior Vena Cava, Percutaneous Approach (ICD-10-PCS; principal; 2019-01-04)
DX: E11.51 Type 2 diabetes mellitus with diabetic peripheral angiopathy without gangrene (principal); D68.59 Other primary thrombophilia; M86.8X7 Other osteomyelitis, ankle and foot; I70.245 Atherosclerosis of native arteries of left leg with ulceration of other part of foot; I70.201 Unspecified atherosclerosis of native arteries of extremities, right leg; L03.032 Cellulitis of left toe; Z87.891 Personal history of nicotine dependence; J00 Acute nasopharyngitis [common cold]; J44.9 Chronic obstructive pulmonary disease, unspecified; I10 Essential (primary) hypertension; Z79.02 Long term (current) use of antithrombotics/antiplatelets; Z91.19 Patient's noncompliance with other medical treatment and regimen; B95.7 Other staphylococcus as the cause of diseases classified elsewhere; Z16.39 Resistance to other specified antimicrobial drug; D64.9 Anemia, unspecified
CPT/HCPCS: 36569; 71045; 71046; 73718; 76937; 80048; 80053; 80202; 82306; 82565; 82652; 82962; 83036; 83735; 84100; 84439; 84443; 84480; 84520; 85025; 85610; 87081; 87400; 93005; J0696; J1650; J1815; J2543; J3370; J7030; J7040; J7050

== ENCOUNTER 2019-02-25 14:16 | Emergency (ER) | payer OTHER ==
[~2019-02-25] VITALS: Ht 177.8 cm; Wt 93.3 kg
[~2019-02-25 14:16] MED LIST changes: +CEFT2FRO2 IV; +LEVO500T10 PO; -LEVO500T48 PO; -Vancomycin Iv Per Pharmacy XX
[2019-02-25 14:23] VITALS: Ht 177.8 cm; Wt 93.3 kg
--- NOTE | 2019-02-25 16:37 | ERD ---
ER Documentation Chief Complaint Chief Complaint picc line removal HPI 58-year-old male here for PICC line removal. He finished his IV antibiotics 1 week ago after a 6-week course for left toe osteomyelitis. He is feeling well and denies any pain or any problems at the wound site. He states it is healing well. No fevers or chills. He has no complaints of arm pain. ROS All systems reviewed and are negative except as per history of present illness. Medications Home Meds Active Scripts Ceftriaxone Na/Dextrose,Iso (Ceftriaxone 2 gm Piggyback) 2 Gm/50 Ml Froz.piggy, 2 GM IV Q24H, #42 Complete course of 6 weeks. Prov:YENNIFER ROSE NP 01/06/19 Levofloxacin* (Levofloxacin*) 500 Mg Tablet, 500 MG PO DAILY for 14 Days, #14 TAB Prov:YENNIFER ROSE NP 01/06/19 Amlodipine Besylate* (Amlodipine Besylate*) 5 Mg Tablet, 10 MG PO DAILY for 30 Days, TAB Prov:ARTEM LYN MD 07/18/18 Insulin Lispro (Humalog Kwikpen U-100) 100 Unit/1 Ml Insuln.pen, 6 UNIT SQ AC MEALS, #3 EA Prov:LEON BEST 07/16/18 Insulin Glargine,Hum.rec.anlog (Basaglar Kwikpen U-100) 100 Unit/1 Ml Insuln.pen, 14 UNIT SC QHS, #3 EA Prov:LEON BEST 07/16/18 Reported Medications Metoprolol Tartrate* (Lopressor*) 25 Mg Tab, 25 MG PO BID, #60 TAB 07/08/18 Aspirin* (Aspirin* Chew) 81 Mg Tab.chew, 81 MG PO DAILY, TAB.CHEW 07/08/18 Lisinopril* (Lisinopril*) 20 Mg Tablet, 20 MG PO DAILY, #30 TAB 07/08/18 Clopidogrel Bisulfate (Clopidogrel) 75 Mg Tablet, 75 MG PO DAILY, #30 TAB 07/08/18 Simvastatin* (Zocor*) 20 Mg Tablet, 20 MG PO QHS, #30 TAB 07/08/18 Allergies Allergies: Coded Allergies: No Known Allergy (Unverified , 07/08/18) PMhx/Soc History of Surgery: Yes (artery bypass) Anesthesia Reaction: No Hx Neurological Disorder: No Hx Respiratory Disorders: No Hx Cardiac Disorders: Yes (Hypertension) Hx Psychiatric Problems: No Hx Miscellaneous Medical Probl: Yes (Diabetes) Hx Alcohol Use: No Hx Substance Use: No Hx Tobacco Use: No FmHx Family History: No diabetes Physical Exam Vitals Vital Signs Date Temp Pulse Resp B/P (MAP) Pulse Ox O2 O2 Flow FiO2 Time Delivery Rate 02/25/19 97.0 68 18 116/58 97 14:23 (77) Physical Exam Const: No acute distress Skin: No petechiae or rashes. Ext: No cyanosis, or edema. 2+ radial pulses bilaterally. Left foot with healing ulcer on left big toe. No surrounding erythema or swelling. No warmth. Healing well, skin closed. Nontender to palpation. Neur: Awake and alert Procedures/MDM Patient is here for a PICC line removal. The PICC line site looks normal without any infection. Left foot wound healing well with no signs of infection on exam. Patient has a follow-up with his surgeon next week. He is done with his antibiotics and is appropriate for PICC removal. Return precautions were discussed. PICC line was removed without any difficulty, completely intact. Patient's blood pressure was elevated (>120/80) but appears stable without evidence of hypertension emergency or urgency. The patient was counseled about the risks of hypertension and urged to pursue outpatient monitoring and therapy within a week with their primary care physician. Departure Diagnosis: Primary Impression: PIC line (peripherally inserted central catheter) removal Condition: Stable Additional Instructions: Regresa a la epi de emergencias si tienes fiebres, dolor o inchado en lucas brazo. YEISON EVANS MD Feb 25, 2019 16:37
== END 2019-02-25 16:47 | disposition home or self-care (01) ==
LOC: E/R 14:16
DX: Z45.2 Encounter for adjustment and management of vascular access device (principal); I10 Essential (primary) hypertension; E11.9 Type 2 diabetes mellitus without complications; Z79.01 Long term (current) use of anticoagulants; Z79.4 Long term (current) use of insulin; Z79.82 Long term (current) use of aspirin
CPT/HCPCS: 99282